=== PATIENT | male | born 1960 | race Caucasian/White ===

== ENCOUNTER 2018-08-23 18:24 | Inpatient (IN) | payer MEDICARE, MEDICAID ==
[~2018-08-23] VITALS: Ht 175.3 cm; Wt 88.2 kg
--- NOTE | ~2018-08-23 | HEMODYNAMI ---
PATIENT:LUZ ALEJANDRO MEDICAL RECORD: [id number] : 58 [id number] ADMISSION DATE: 08/23/18 Generatedon:08/29/201815:36 Patient name: LUZ ALEJANDRO Patient #: [id number] SSN : : 1960 Date of study: 08/29/2018 Page: Of Hemodynamic Procedure Report Patient Data Patient Demographics Procedure consent was obtained First Name: LUZ Gender: Male Last Name: JAVON : 1960 Patient #: [id number] Age: 58 year(s) Race: Unknown Additional ID: [id number] Contact details [address]: [address] [place] [address] [place] State: [place] City: [place] Zip code: [address] Admission Admission Data Admission Date: 08/23/2018 Admission Time: 21:11 Arrival Date: 08/29/2018 Arrival Time: 0:00 Admit Source: Other Insurance Payor: Private Room #: D.[id number] health insurance Height (in.): 68.9 BSA: 1.83 (m2) Height (cm.): 175 BMI: 22.2 (kg/m2) Weight (lbs.): 149.92 Weight (kg.): 68 Lab Results Lab Result Date: 08/29/2018 Lab Result Time: 0:00 Biochemistry Name Units Result Min Max BUN mg/dl 6 -*(----)-- 7 18 Creatinine mg/dl 0.6 --(*---)-- 0.6 1.3 CBC Name Units Result Min Max Hemoglobin g/dl 9.9 *-(----)-- 13.5 17.5 Procedure Procedure Types Cath Procedure Diagnostic Procedure C [facility] w/Coronaries Procedure Description Procedure Date Procedure Date: 08/29/2018 Procedure Start Time: 15:27 Procedure End Time: 15:33 Procedure Staff Name Function Radha Camacho RT Monitor Rob Cuellar MD Performing Physician Mary Ann Crump RT Scrub Lea Burton RN Nurse Procedure Data Cath Procedure Fluoroscopy Diagnostic fluoroscopy Total fluoroscopy Time: 1.3 time: 1.3 min min Diagnostic fluoroscopy Total fluoroscopy dose: 252 dose: 252 mGy mGy Contrast Material Contrast Material Type Amount (ml) Isovue 300 28 Entry Location Entry Primary Successful Side Size Upsize Upsize Entry Closure Vidal ccessful Closure Location (Fr) 1 (Fr) 2 (Fr) Remarks Device Remarks Radial Right 6 Fr Mechanical artery Short Compression Estimated blood loss: 5 ml Diagnostic catheters Device Type Used For End Catheter Placement DIAGNOSTIC [place] 110cm 5 Multi-vessel Fr catheter ([id number]) Angiography Procedure Complications No complications Procedure Medications Medication Administration Route Dosage 0.9% NaCl I.V. 100 ml/hr Oxygen etCO2 Nasal cannula 2 l/min Lidocaine 2% added to field 20 Heparin Flush Bag added to field 2 bags (1000units/500ml NS) Radial Cocktail added to field 1 syringe (Verapamil 2mg/Nitro 400mcg/Heparin 1500units) Versed I.V. 2 mg Fentanyl I.V. 50 mcg Hemodynamics Rest BSA: 1.83 (m2) HGB: 9.9 (g/dl) O2 Consumption: Estimated: 210.49 (ml/min) O2 Con sumption indexed: Estimated:115.02 (ml/min/m) Heart Rate: 63 (bpm) Pressure Samples Time Site Value (mmHg) Purpose Heart Use Rate(bpm) 15:29 LV 88/-4,4 Snapshot 80 15:30 AO 73/55(63) Pullback 83 Gradients Valve Time Site Site 2 Mean SEP/DFP Peak To Heart Use 1 (mmHg) (sec/min) Peak Rate (mmHg) (bpm) Aortic 15:30 LV AO 3 10 83 73/55(63) Calculations Valve P-P Mean Valve Index Valve Source Name Gradient Area Flow (cm2) Aortic 3 3 Snapshots Pre Cath Intra NCS Post Cath Vital Signs Time Heart Resp SPO2 etCO2 NIBP (mmHg) Rhythm Pain Sedation Rate (ipm) (%) (mmHg) Status Level (bpm) 15:17:50 66 17 98 38 153/76(130) NSR 0 (11) 10(A) , No pain 15:22:14 64 12 100 21 141/81(124) NSR 0 (11) 10(A) , No pain 15:26:30 77 12 98 22 138/78(111) NSR 0 (11) 9(A) , No pain 15:30:42 79 13 99 17.9 101/58(83) NSR 0 (11) 10(A) , No pain Medications Time Medication Route Dose Verified Delivered Reason Notes E ffectiveness by by 15:16:43 0.9% NaCl I.V. 100 Rob Lea used for ml/hr [place] Micheal procedure MD KLEIN 15:16:54 Oxygen etCO2 2 l/min Rob Lea used for Nasal [facility] procedure cannula MD KLEIN 15:17:02 Lidocaine 2% added 20ml Rob Rob for local to vial [facility] anesthetic field MD DANGELO 15:17:06 Heparin Flush added 2 bags Rob Rob used for Bag to [facility] procedure (1000units/500ml field MD DANGELO NS) 15:17:13 Radial Cocktail added 1 Rob Rob used for (Verapamil to syringe [facility] procedure 2mg/Nitro field MD DANGELO 400mcg/Hepari 15:24:32 Versed I.V. 2 mg Rob Diaza for [facility] Burton sedation MD KLEIN 15:24:40 Fentanyl I.V. 50 mcg Rob Tate for [place] Micheal sedation MD KLEINeconomist research assistant Log Time Note 14:38:59 Signed procedure consent form obtained from patient. 14:39:00 Diagnostic Cath status Elective 14:39:02 Time tracking: Regular hours (M-F 7:00 - 5:00) 14:39:04 Plan of Care:Hemodynamics will remain stable., Cardiac rhythm will remain stable., Comfort level will be maintained., Respiratory function will remain adequate., Patient/ family verbilizes understanding of procedure., Procedure tolerated without complication., Recovers from procedure without complications.. 14:39:09 Lea Burton RN sent for patient. Start room use. 15:10:27 Patient received from Med/Surg to CCL 1 Alert and oriented. Tansferred to table in Supine position. 15:10:29 ECG and BP/O2 sat monitors applied to patient. 15:10:29 Correct patient and procedure confirmed by team. 15:10:29 Warm blankets applied, and rama hugger turned on for patient comfort. 15:16:36 Vital chart was started 15:16:43 0.9% NaCl 100 ml/hr I.V. was administered by Lea Burton RN; used for procedure; 15:16:54 Oxygen 2 l/min etCO2 Nasal cannula was administered by Lea Burton RN; used for procedure; 15:17:02 Lidocaine 2% 20ml vial added to field was administered by Rob Cuellar MD; for local anesthetic; 15:17:06 Heparin Flush Bag (1000units/500ml NS) 2 bags added to field was administered by Rob Cuellar MD; used for procedure; 15:17:13 Radial Cocktail (Verapamil 2mg/Nitro 400mcg/Heparin 1500units) 1 syringe added to field was administered by Rob Cuellar MD; used for procedure; 15:22:29 Baseline sample Acquired. 15:22:33 Rhythm: sinus rhythm 15:22:35 Full Disclosure recording started 15:22:39 H&P Date Dictated: 08/29/2018 New H&P dictated by physician.. 15:22:40 Pre-procedure instructions explained to patient. 15:22:41 Pre-op teaching completed and patient verbalized understanding. 15:22:42 Family in waiting room. 15:22:43 Patient NPO since Midnight. 15:22:45 Is the patient allergic to Iodine/contrast media? No. 15:22:49 Was the patient premedicated? No 15:22:52 Is patient on blood thinner?No 15:22:53 Patient diabetic? No. 15:22:55 Previous problem with sedation/anesthesia? No ? 15:22:57 Snore? Yes 15:22:58 Sleep apnea? No 15:22:59 Deviated septum? No 15:23:06 Opens mouth fully? Yes 15:23:07 Sticks out tongue? Yes 15:23:11 Airway obstruction? Yes copd 15:23:15 Dentures? No ? 15:23:19 Pre procedure: right dorsailis pedis pulse 2+ Normal; easily identifiable; not easily obliterated 15:23:21 Pre procedure: right posterior tibial pulse 2+ Normal; easily identifiable; not easily obliterated 15:23:23 Patient pain scale 0/10 ?. 15:23:35 IV patent on arrival in left forearm with 0.9% NaCl at O. 15:23:38 Lab results completed and on chart. 15:23:42 Alarms reviewed by RMary NMary 15:23:42 Right Radial & Right Groin area was prepped with chlora-prep and draped in sterile fashion 15:23:43 Sharps counted by scrub and verified by R.N. 15::45 --------ALL STOP TIME OUT------ 15:23:45 Physician arrived 15:23:46 Final Timeout: patient, procedure, and site verified with staff and physician. All members of the team are in agreement. 15:23:48 Right Radial & Right Groin site verified by team. 15:23:51 Maximum allowable Isovue 300 dose 300ml. Physician notified. (300ml for normal creatinines. For patients with creatinine of 1.7 or higher multiply weight(kg) x 5 divided by creatinine.) 15:24:01 Fire Safety Assessment: A--An alcohol-based skin anteseptic being used preoperatively., C--Open oxygen or nitrous oxide is being used., D--An ESU, laser, or fiber-optic light is being used., E--There are other possible contributors. 15:24:05 Physical assessment completed. ASA score P 2 - A patient with mild systemic disease as per Rob Cuellar MD. 15:24:09 Sedation plan: IV Moderate Sedation Medication:Versed, Fentanyl 15:24:14 Use device set Radial Dx or PCI 15:24:15 Medline Cath Pack ([id number]) opened to sterile field. 15:24:15 ACIST Syringe (80654) opened to sterile field. 15:24:16 ACIST Hand Control (51127) opened to sterile field. 15:24:16 DIAGNOSTIC WIRE .035 260cm J wire (605750) opened to sterile field. 15:24:16 Bag Decanter (2002S) opened to sterile field. 15:24:17 Tegaderm 4 x 4 (1626W) opened to sterile field. 15:24:17 ACIST Manifold (70772) opened to sterile field. 15:24:18 MBrace Wrist Support ([id number]) opened to sterile field. 15:24:19 SHEATH 6FR Slender (07-1060) opened to sterile field. 15:24:32 Versed 2 mg I.V. was administered by Lea Burton RN; for sedation; 15:24:33 Zero performed for pressure channel P1 15:24:40 Fentanyl 50 mcg I.V. was administered by Lea Burton RN; for sedation; 15:25:03 Zero performed for pressure channel P1 15:: Lab Result : Hemoglobin 9.9 g/dl :: Lab Result : Creatinine 0.6 mg/dl :: Lab Result : BUN 6 mg/dl 15::38 Patient Weight : 149.92 lbs 15::42 Patient Height : 68.9 inches 15::44 Admit Source: Other 15::47 Procedure started. 15:27:50 Local anesthetic to right radial artery with Lidocaine 2% by Rob Cuellar MD.INITIAL ACCESS ONLY 15:27:59 A 6 Fr Short sheath was inserted into the Right Radial artery 15::31 A DIAGNOSTIC [place]a 110cm 5 Fr catheter ([id number]) was advanced over the wire and used for Multi-vessel Angiography. 15::47 LV hemodynamics recorded. 15:29:48 LV gram done using WAY 15:29:51 Injector settings: Ml/sec: 5, Volume: 15, 15:30:10 EF : 55 % 15:30:18 LCA angiography performed. 15:30:21 Injector settings: Ml/sec: 3, Volume: 6, 15:31:15 RCA angiography performed. 15:31:18 Injector settings: Ml/sec: 3, Volume: 6, 15:31:49 Catheter removed. 15:32:05 Sheath removed intact; hemostasis achieved with Mechanical Compression to the Right Radial artery. 15:32:07 Procedure ended.(Physican Out) 15:32:20 Fluoroscopy time 01.30 minutes. 15:32:24 Fluoroscopy dose: 252 mGy 15:32:24 Flurop Dose total: 252 15:32:28 Contrast amount:Isovue 300 28ml. 15:32:30 Sharps counted by scrub and verified by R.N. 15:32:33 TR band inflated with 10cc of air. 15:32:35 Insertion/operative site no bleeding no hematoma. 15:32:38 Post right radial artery:stable 15:32:41 Post Procedure Pulses reassessed and unchanged 15::44 Post procedure rhythm: unchanged. 15:32:47 Estimated blood loss: 5 ml 15:32:49 Patient needs reinforcement of post procedure teaching. 15:32:49 Post procedure instruction explained to patient.Patient verbalizes understanding. 15:32:58 Procedure and supply charges have been captured, reviewed, submitted and are correct. 15:33:03 Procedure Complication : No complications 15:33:05 Vital chart was stopped 15:33:06 See physician's report for complete and final results. 15:33:12 Report given to [facility]. 15:33:15 Patient transfered to [facility] with Stretcher. 15:33:18 Full Disclosure recording stopped 15:33:18 Procedure ended. 15:33:24 End room use (Document Last) 15:33:54 Arrival Date: 08/29/2018 12:00:00 AM 15:34:16 Insurance Payor : Private health insurance 15:35:46 TR BAND Standard ([id number]) opened to sterile field. Device Usage Item Name Manufacture Quantity Catalog Hospital Part Current Minimal Lot# / Number Charge Number Stock Stock Serial# Code ACIST Acist 1 68042 677506 969714 853694 20 Syringe Medical (33363) Systems Inc Medline Medline 1 [id number] 241544 38421 893520 5 Cath Pack ([id number]) Bag Microtek 1 2001S 448956 78729 244942 5 Decanter Medical Inc. (2001S) DIAGNOSTIC [place] 1 077104 817551 440544 534092 30 WIRE .035 260cm J wire (184329) ACIST Hand Acist 1 26011 342025 019002 321677 5 Control Medical (22927) Systems Inc ACIST Acist 1 04719 814709 227583 625963 5 Manifold Medical (42364) Systems Inc Tegaderm 4 3M 1 1626W 324324 493219 152368 5 x 4 (1626W) MBrace Advanced 1 140-0250-00 025458 21560 003750 5 Wrist Vascular Support Dynamics ([id number]) SHEATH 6FR Terumo 1 [id number] 704766 843886 462285 5 Slender (80-1060) DIAGNOSTIC Terumo 1 40-3883 489388 903840 554070 5 K[place]a 110cm 5 Fr catheter (135678) TR BAND Terumo 1 [id number] 565282 299339 397652 40 Standard ([id number]) Signature Audit [place] Stage Time Signature Unsigned Intra-Procedure 08/29/2018 Radha Camacho 3:36:48 PM RT(R) Signatures Monitor : Radha Camacho RT Signature : Date : Time : [facility] [address] [place] [address]
[2018-08-23] MEDS ORDERED: LISINOPRIL5 MG PO (18:41)
[2018-08-23] MEDS ORDERED: NORVASC5 MG PO (18:41)
[2018-08-23 19:01] LABS: BASOPHILS 0.2 % (0-2); EOSINOPHILS 0.2 % (0-7); HEMATOCRIT 44.1 % (42.0-54.0); IMMATURE GRANULOCYTES 0.2 % (0-5); LYMPHOCYTES 16.1 % (15-50); MCH 33.3 pg (26.0-34.0); MCHC 36.3 g/dL (31.0-37.0); MCV 91.7 fL (80.0-100.0); MEAN PLATELET VOLUME 13.1 fL (7.4-10.4); MONOCYTES 6.7 % (2-11); NEUTROPHILS 76.6 % (40-80); RBC 4.81 10x6/uL (4.20-6.10); RDW 14.5 % (11.5-14.5)
[2018-08-23 19:08] VITALS: BP 127/66
[2018-08-23 19:09] LABS: APTT 27.2 SECONDS (22.8-39.4); INR 1.19 (0.85-1.17); PLATELET COUNT 31 10x3/uL (130-400); PROTIME 14.6 SECONDS (11.6-15.0)
--- NOTE | 2018-08-23 19:25 | NUR ---
PT RETURNED FROM CT VIA STRETCHER. PT RESTING ON BED.
[2018-08-23 19:44] LABS: ALBUMIN 3.2 g/dL (3.4-5.0); ALKALINE PHOSPHATASE 100 U/L (46-116); ALT (SGPT) 1297 U/L (10-68); BILIRUBIN - TOTAL 1.23 mg/dL (0.2-1.3); CALC OSMOLALITY 270 mosm/kg (275-300); CALCIUM 8.2 mg/dL (8.5-10.1); CARBON DIOXIDE 20.3 mmol/L (21.0-32.0); CHLORIDE - SERUM 96 mmol/L (98-107); CREATININE - SERUM 1.8 mg/dL (0.6-1.3); GLUCOSE 117 mg/dL (74-106); POTASSIUM - SERUM 3.1 mmol/L (3.5-5.1); PROTEIN - SERUM 7.3 g/dL (6.4-8.2); SODIUM 135 mmol/L (136-145); UREA NITROGEN 13 mg/dL (7-18); eGFR NON AFRICAN AMERICAN 41 mL/min (90-120)
[2018-08-23 20:00] VITALS: BP 118/59
[2018-08-23 20:01] LABS: MAGNESIUM - SERUM 1.1 mg/dL (1.8-2.4); THYROID STIMULATING HORMONE 0.57 uIU/mL (0.36-3.74); TROPONIN-I < 0.017 ng/mL (0.000-0.060)
[2018-08-23 20:04] LABS: CREATINE KINASE 17254 UL (21-232)
--- NOTE | 2018-08-23 20:10 | NUR ---
PT PROVIDED ICE WATER TO DRINK.
[2018-08-23 21:00] VITALS: BP 127/65
[2018-08-23 21:14] LABS: AMYLASE - SERUM 88 U/L (25-115); LIPASE 179 U/L (73-393)
--- NOTE | 2018-08-23 23:10 | NUR ---
PT ARRIVED VIA STRETCHER FROM ER. R ARM ESSENTIALLY FLACCID. ASSISTED TO BED. BUTTOCKS BRIGHT STAGE 1 APPROX 10CM IN DIAMETER. DRIED FECAL MATTER NOTED OT BUTTOCKS. PT CLEANED AND NICCI'S BUTT PASTE APPLIED. IV TO LAC WITH BANANA BAG AT 125CC/HR. IV PATENT. RED AREA NOTED TO INNER L GROIN. SCRATCH NOTED TO R UPPER ARM. PT ALERT AND ORIENTED TO PERSON, PLACE AND TIME. YELLOW GOWN PLACED AND PT REPOSITIONED ONTO R SIDE. VSS. SR PER CM HR 88. SR UP X2, CALL LIGHT WITHIN REACH AND BED ALARM ON.
[2018-08-24] VITALS: BP 127/68
[2018-08-24 00:10] VITALS: BP 135/72; BMI 22.3
--- NOTE | 2018-08-24 01:15 | NUR ---
PT REPOSITIONED IN BED FOR COMFORT. ATIVAN 1MG SIVP GIVEN FOR AGITATION. SCD'S EXPLAINED AND PLACED ON BILAT LOWER EXTREMITIES. SR UP X2, CALL LIGHT WITHIN REACH AND BED ALARM ON.
--- NOTE | 2018-08-24 03:25 | NUR ---
PT REPOSITIONED IN BED FOR COMFORT. DENIES NEED TO URINATE. PT DRY AT THIS TIME. SR UP X2, CALL LIGHT WITHIN REACH.
--- NOTE | 2018-08-24 04:18 | NUR ---
ATIVAN 1MG SIVP GIVEN FOR START OF TREMORS. PT REPOSITIONED ONTO L SIDE. NO CHANGES TO NEURO STATUS NOTED. PT DENIES NEED TO URINATE. NO BLADDER DISTENSION NOTED. SR UP X2, CALL LIGHT WITHIN REACH.
[2018-08-24 05:26] LABS: BASOPHILS 0.2 % (0-2); EOSINOPHILS 0.6 % (0-7); HEMOGLOBIN 14.1 g/dL (13.5-17.5); IMMATURE GRANULOCYTES 0.2 % (0-5); LYMPHOCYTES 43.5 % (15-50); MCH 33.1 pg (26.0-34.0); MCHC 36.2 g/dL (31.0-37.0); MCV 91.5 fL (80.0-100.0); MONOCYTES 6.2 % (2-11); NEUTROPHILS 49.3 % (40-80); RBC 4.26 10x6/uL (4.20-6.10); RDW 14.6 % (11.5-14.5)
[2018-08-24 05:27] LABS: PLATELET COUNT 23 10x3/uL (130-400)
--- NOTE | 2018-08-24 05:38 | NUR ---
PT STATES ATIVAN HELP HIS TREMORS. DENIES NEED TO URINATE AT THIS TIME. SR PER CM. MINIMAL MOVEMENT TO R ARM. NEEDS MET; WILL CONTINUE TO MONITOR.
[2018-08-24 05:54] LABS: PLATELET ESTIMATE DECREASED; PLATELET MORPHOLOGY NORMAL PLT MORPH
[2018-08-24 06:11] LABS: ALBUMIN 2.7 g/dL (3.4-5.0); BILIRUBIN - TOTAL 1.54 mg/dL (0.2-1.3); CALCIUM 7.6 mg/dL (8.5-10.1); CREATININE - SERUM 1.4 mg/dL (0.6-1.3); PHOSPHOROUS 3.8 mg/dL (2.5-4.9); POTASSIUM - SERUM 3.1 mmol/L (3.5-5.1); PROTEIN - SERUM 6.1 g/dL (6.4-8.2)
--- NOTE | 2018-08-24 06:21 | NUR ---
PT VOIDED 575 CC OF TEA COLORED URINE VIA URINAL. PT PLACED ON BEDPAN PER REQUEST. CALL LIGHT WITHIN REACH.
[2018-08-24 06:31] LABS: MAGNESIUM - SERUM 1.5 mg/dL (1.8-2.4)
[2018-08-24 06:32] LABS: ANION GAP 12.5 mmol/L (8-16); CARBON DIOXIDE 26.6 mmol/L (21.0-32.0)
--- NOTE | 2018-08-24 07:25 | NUR ---
PT RESTING IN BED, EYES OPEN. NO C/O PAIN. NO S/S OF ACUTE DISTRESS NOTED. ALERT AND ORIENTED. PT SLOW TO RESPOND TO QUESTIONS, BUT ANSWERS APPROPRIATELY. RIGHT ARM FLACCID. NEEDS ASSISTANCE WITH MEALS. BUTTOCKS, LEFT GROIN REDNESS. PT ON TELEMETRY SR 79. IV TO LEFT AC, BANANA BAG INFUSING @ 125ML/HR. PLATELETS 23 THIS AM, POTASSIUM 3.1 AND MAG 1.5 THIS AM ALSO. PT DENIES ANYTHING FURTHER AT THIS TIME. CALL LIGHT IN REACH. FALL PRECAUTIONS IN PLACE. WILL CONTINUE TO MONITOR.
[2018-08-24 09:22] VITALS: BP 136/66
--- NOTE | 2018-08-24 12:10 | NUR ---
I have reviewed this patient and I concur with the Shift Assessment completed by the Licensed Practical Nurse today this shift.
--- NOTE | 2018-08-24 15:48 | NUR ---
PT'S DAUGHTER CALLED TO CHECK ON PT. GAVE US HER CONTACT INFO: [phone].
--- NOTE | 2018-08-24 16:02 | MORECARE ---
CASE MANAGEMENT DISCHARGE SUMMARY PATIENT: LUZ ALEJANDRO UNIT: [id number] ADM DATE: 08/23/18 AGE: 58 : 58 SEX: M ROOM/BED: D.2204 AUTHOR: DOROTHEA ANSARI PHYSICIAN: REFERRING PHYSICIAN: JAGRUTI CHAIREZ MD DATE OF SERVICE: 08/24/18 Discharge Plan Patient Name: LUZ ALEJANDRO Facility: [facility]:[place] : 1960 Planned Disposition: Inpatient Rehab Facility Anticipated Discharge Date: Discharge Date: Expected LOS: Initial Reviewer: [email or web address] Initial Review Date: 08/23/2018 Generated: 08/24/18 5:02 pm Patient Name: LUZ ALEJANDRO Page 33374 at 1602 All edits/amendments must be made on the electronic document DICTATION DATE: 08/24/181600 SOCIAL WORK MANAGER: LORENE 08/24/181600 RPT#: [id number] DC DATE: STATUS: ADM IN [facility] [address] [place] [address] END OF REPORT
--- NOTE | 2018-08-24 16:09 | MORECARE ---
CASE MANAGEMENT DISCHARGE SUMMARY PATIENT: LUZ ALEJANDRO UNIT: [id number] ADM DATE: 08/23/18 AGE: 58 : 58 SEX: M ROOM/BED: D.2204 AUTHOR: DOROTHEA ANSARI PHYSICIAN: REFERRING PHYSICIAN: JAGRUTI CHAIREZ MD DATE OF SERVICE: 08/24/18 Discharge Plan Patient Name: LUZ ALEJANDRO [facility] : 1960 Planned Disposition: Inpatient Rehab Facility Anticipated Discharge Date: Discharge Date: Expected LOS: Initial Reviewer: [email or web address] Initial Review Date: 08/23/2018 Generated: 08/24/18 5:09 pm DCPIA - Discharge Planning Initial Assessment Updated by [email or web address]: Sepideh Floyd on 08/24/18 4:07 pm * Is the patient Alert and Oriented? Yes * How many steps to enter\exit or inside your home? 4 steps fr * [facility] Pharmacy [facility] in [place], [place] * Preadmission Environment Home Alone * ADLs Independent * Community resources currently utilized None * Please name any agencies selected above. N/A * Additional services required to return to the preadmission environment? Yes * Can the patient safely return to the preadmission environment? Yes * Has this patient been hospitalized within the prior 30 days at any hospital? No Last DP export: 08/24/18 3:02 pm Patient Name: LUZ ALEJANDRO Page 73826 at 1609 All edits/amendments must be made on the electronic document DICTATION DATE: 08/24/18 160 BALING MACHINE TENDER: DM 08/24/18 160 RPT#: [id number] DC DATE: STATUS: ADM IN [facility] [address] [place] [address] END OF REPORT
--- NOTE | 2018-08-24 16:34 | MORECARE ---
CASE MANAGEMENT DISCHARGE SUMMARY PATIENT: LUZ DICKSON UNIT: [id number] ADM DATE: 08/23/18 AGE: 58 : 58 SEX: M ROOM/BED: D.2204 AUTHOR: COTY,DOC PHYSICIAN: REFERRING PHYSICIAN: JAGRUTI CHAIREZ MD DATE OF SERVICE: 08/24/18 Discharge Plan Patient Name: LUZ DICKSON Facility: [facility]:[place] : 1960 Planned Disposition: Inpatient Rehab Facility Anticipated Discharge Date: Discharge Date: Expected LOS: Initial Reviewer: [email or web address] Initial Review Date: 08/23/2018 Generated: 08/24/18 5:34 pm Comments DCP- Discharge Planning Updated by [email or web address]: Sepideh Floyd on 08/24/18 3:[address] CM met with patient at the bedside and explained my role. Received permission to proceed with the assessment. His speech is slightly slurred and he is slow in answering. Patient lives alone in [place], [place]. Was independent in his care. He has a brother, Randal Dickson, in [place]. States "he owns [employer]". A person named Radha called and identified herself as his daughter. He states Radha is his sister in [place]. He stated information could be shared with Radha. Her contact phone number is [phone]. The nurse had received a telephone call from Radha. The primary nurse provided the contact number for Radha. He has 4 steps in the front to enter his home and 6 steps at a higher level in the back. DME- has a cane- denies any additional equipment. Has tub and shower. PCP- DR Talbot in [place], [place] Pharmacy- [facility] in [place] Discussed dcp options. He would like acute rehab. Advised him of the providers [facility] and [facility]. Advised him he would be evaluated by PT/ OT/ Speech Therapy. Explained case management will follow to assist w/ next level of care needs. He will think about which rehab he wants. Speech therapy on the unit at this time. CM to follow. DCPIA - Discharge Planning Initial Assessment Updated by [email or web address]: Sepideh Floyd on 08/24/18 4:07 pm * Is the patient Alert and Oriented? Yes * How many steps to enter\\exit or inside your home? 4 steps fr * PCP DR Loyd Talbot Nurse Practitioner- [place] * Pharmacy [facility] in [place], [place] * Preadmission Environment Home Alone * ADLs Independent * Community resources currently utilized None * Please name any agencies selected above. N/A * Additional services required to return to the preadmission environment? Yes * Can the patient safely return to the preadmission environment? Yes * Has this patient been hospitalized within the prior 30 days at any hospital? No Last DP export: 08/24/18 3:09 pm Patient Name: LUZ DICKSON Page 94789 at 1634 All edits/amendments must be made on the electronic document DICTATION DATE: 08/24/181633 FEEDER CATCHER: LORENE 08/24/184 RPT#: [id number] DC DATE: STATUS: ADM IN [facility] [address] [place] [address] END OF REPORT
[2018-08-24 17:18] VITALS: BP 139/69
--- NOTE | 2018-08-24 18:19 | NUR ---
PT RESTING IN BED, EYES OPEN. NO C/O PAIN. NO S/S OF ACUTE DISTRESS NOTED. PT DENIES ANYTHING FURTHER. CALL LIGHT IN REACH. FALL PRECAUTIONS IN PLACE. WILL CONTINUE TO MONITOR.
[2018-08-24 20:00] VITALS: BP 135/64
--- NOTE | 2018-08-24 23:47 | NUR ---
RESTARTED ADY TO LEFT INNER FOREARM WITH 20 GA AND DCED IV FROM LEFT AC CATH INTACT
[2018-08-25] VITALS: BP 131/59
[2018-08-25 03:00] VITALS: BP 106/70
[2018-08-25 03:58] LABS: BASOPHILS 0.2 % (0-2); EOSINOPHILS 0.9 % (0-7); HEMOGLOBIN 13.1 g/dL (13.5-17.5); IMMATURE GRANULOCYTES 0.2 % (0-5); LYMPHOCYTES 39.4 % (15-50); MCH 32.4 pg (26.0-34.0); MCHC 35.4 g/dL (31.0-37.0); MCV 91.6 fL (80.0-100.0); MONOCYTES 4.5 % (2-11); NEUTROPHILS 54.8 % (40-80); RBC 4.04 10x6/uL (4.20-6.10); RDW 14.1 % (11.5-14.5); WBC 4.7 10x3/uL (4.8-10.8)
[2018-08-25 04:03] LABS: PLATELET COUNT 20 10x3/uL (130-400)
[2018-08-25 04:08] LABS: INR 1.18 (0.85-1.17); PROTIME 14.5 SECONDS (11.6-15.0)
[2018-08-25 04:20] LABS: ALBUMIN 2.7 g/dL (3.4-5.0); ANION GAP 12.8 mmol/L (8-16); BILIRUBIN - TOTAL 2.55 mg/dL (0.2-1.3); CALCIUM 8.1 mg/dL (8.5-10.1); CARBON DIOXIDE 27.6 mmol/L (21.0-32.0); CREATININE - SERUM 1.1 mg/dL (0.6-1.3); MAGNESIUM - SERUM 1.7 mg/dL (1.8-2.4); POTASSIUM - SERUM 3.4 mmol/L (3.5-5.1); PROTEIN - SERUM 6.1 g/dL (6.4-8.2)
[2018-08-25 04:29] LABS: PHOSPHOROUS 1.4 mg/dL (2.5-4.9)
--- NOTE | 2018-08-25 07:53 | NUR ---
AWAKE AND ALERT. OREINTED X3. REPORTED SCRAPED ARM ON SIDE OF BED. SMALL 1CM ABRASION NOTED. COVERED WITH BANDAID. LUNGS ARE CLEAR BILATERALLY, NO COUGH NOTED. SKIN IS INTACT WITH SOME REDNESS NOTED TO NUNU AREA. IV TO LEFT WRIST AREA IS PATENT WITHOUT REDNESS AT INSERTION SITE. DENIES NEEDS. USES URINAL.
[2018-08-25 08:46] VITALS: BP 133/84
--- NOTE | 2018-08-25 09:30 | NUR ---
ATE MOST OF BREAKFAST. TOOK AM MEDS WITHOUT DIFFICUTLY. DENIES NEEDS.
--- NOTE | 2018-08-25 11:59 | NUR ---
Rehab Note- Acute Inpatient Rehab prescreen order received. The patient has [facility] insurance and will require a PreAuth prior to an inpatient acute rehab stay. PreAuth has been started. Will follow at this time. Thank you for this referral! Lila Lomeli RN Clinical Liaison, [facility] Rehab
[2018-08-25 13:03] VITALS: BMI 22.3
[2018-08-25 13:31] VITALS: Ht 175.3 cm; Wt 88.2 kg
[2018-08-25 13:46] VITALS: BP 157/99
[2018-08-25 18:12] VITALS: BP 134/86
--- NOTE | 2018-08-25 18:51 | NUR ---
UP TO BR WITH ONE PERSON ASSIST. HAD GOOD FORMED STOOL. STATED HE FELT BETTER AFTER. ATE MOST OF SUPPER. NO CHANGES NOTED. DENIES NEEDS.
[2018-08-25 20:00] VITALS: BP 146/82
--- NOTE | 2018-08-25 20:30 | NUR ---
SUPINE IN BED, A&O X 4. HAND KICKING MACHINE OPERATOR ON RIGHT SIDE IS WEAK. WEAKNESS ALSO NOTED IN RIGHT LEG. PT AMBULATED TO BATHROOM WITH WALKER, MIN ASSIST. WEAKNESS NOTED, BSC PUT IN ROOM. WILL CONTINUE TO MONITOR.
[2018-08-26] VITALS: BP 145/79
--- NOTE | 2018-08-26 04:39 | NUR ---
I have reviewed this patient and I concur with the Shift Assessment completed by the Licensed Practical Nurse today this shift.
[2018-08-26 05:32] LABS: ALBUMIN 2.3 g/dL (3.4-5.0); ALKALINE PHOSPHATASE 84 U/L (46-116); BILIRUBIN - TOTAL 2.89 mg/dL (0.2-1.3); CALCIUM 7.6 mg/dL (8.5-10.1); CARBON DIOXIDE 28.2 mmol/L (21.0-32.0); CHLORIDE - SERUM 103 mmol/L (98-107); CREATININE - SERUM 0.9 mg/dL (0.6-1.3); GLUCOSE 93 mg/dL (74-106); MAGNESIUM - SERUM 1.5 mg/dL (1.8-2.4); POTASSIUM - SERUM 3.6 mmol/L (3.5-5.1); PROTEIN - SERUM 5.3 g/dL (6.4-8.2); SODIUM 138 mmol/L (136-145); eGFR NON AFRICAN AMERICAN > 90 mL/min (90-120)
[2018-08-26 05:39] LABS: BASOPHILS 0.3 % (0-2); EOSINOPHILS 2.3 % (0-7); LYMPHOCYTES 31.2 % (15-50); MCH 32.3 pg (26.0-34.0); MCHC 34.7 g/dL (31.0-37.0); MCV 93.2 fL (80.0-100.0); MEAN PLATELET VOLUME 12.1 fL (7.4-10.4); MONOCYTES 10.2 % (2-11); RDW 14.1 % (11.5-14.5)
[2018-08-26 05:41] LABS: HEMOGLOBIN 10.4 g/dL (13.5-17.5); RBC 3.22 10x6/uL (4.20-6.10); WBC 3.5 10x3/uL (4.8-10.8)
[2018-08-26 05:42] LABS: PLATELET COUNT 19 10x3/uL (130-400)
[2018-08-26 05:49] LABS: ALT (SGPT) 279 U/L (10-68); CALC OSMOLALITY 274 mosm/kg (275-300); PHOSPHOROUS 2.1 mg/dL (2.5-4.9); UREA NITROGEN 10 mg/dL (7-18)
[2018-08-26 06:07] LABS: PLATELET ESTIMATE DECREASED
[2018-08-26 09:15] VITALS: BP 155/95
[2018-08-26 09:15] LABS: HEPATITIS C ANTIBODY <0.1 S/CO RAT (0.0-0.9)
--- NOTE | 2018-08-26 13:42 | NUR ---
PT RESTING IN BED. NO SIGNS OF DISTRESS. IV TO LEFT FORARM PATENT NO REDNESS OR TENDERNESS. ON TELEMETRY 82 SR. DENIES ANY FUTHER NEED AT THIS TIME. CALL LIGHT IN REACH. BED LOW POSITION. NO FAMILY AT BEDSIDE AT THIS TIME.
[2018-08-26 13:50] VITALS: BP 138/71
--- NOTE | 2018-08-26 14:42 | NUR ---
PT COMPLETED SHOWER. FULL LINEN AND GOWN CHANGE. PT DENIES FURTHER NEEDS. WILL CONT TO MONITOR.
--- NOTE | 2018-08-26 15:58 | NUR ---
I have reviewed this patient and I concur with the Shift Assessment completed by the Licensed Practical Nurse today this shift.
[2018-08-26 19:01] VITALS: BP 135/74
--- NOTE | 2018-08-26 19:30 | NUR ---
A&O X 4. HAND ROAD ENGINEER FREIGHT AND LEG STRENTH ON RIGHT SIDE ARE STILL SLIGHTLY WEAK, BUT PT STATES HE IS GETTING BETTER AND CAN AMBULATE WITH WALKER BETTER THAN YESTERDAY. REINFORCED TO PT TO PRESS CALL LIGHT AND WAIT FOR NURSE OR AID IF ATTEMPTING TO AMBULATE. PT VERBALIZED UNDERSTANDING. WILL CONTINUE TO MONITOR.
--- NOTE | 2018-08-26 19:54 | NUR ---
OT NOTE: IMPROVEMENT NOTED TODAY FROM YESTERDAY. BED MOB WITH MIN ASSIST; ABLE TO AMB WITH MIN ASSIST AT SLOW PACE X APPROX 50 FT. ABLE TO KEEP R HAND ON WALKER TODAY WITHOUT ASSIST. TOILETING WITH ASSIST; BED MOB WITH MIN ASSIST BACK TO BED. ROVERTO GALVAN, OTR/L
[2018-08-26 20:41] VITALS: BP 144/83
[2018-08-27 00:57] VITALS: BP 160/88
--- NOTE | 2018-08-27 05:47 | NUR ---
I have reviewed this patient and I concur with the Shift Assessment completed by the Licensed Practical Nurse today this shift.
[2018-08-27 05:54] VITALS: BP 154/85
[2018-08-27 06:04] LABS: HEMATOCRIT 27.7 % (42.0-54.0); HEMOGLOBIN 9.6 g/dL (13.5-17.5); MCH 32.9 pg (26.0-34.0); MCHC 34.7 g/dL (31.0-37.0); MCV 94.9 fL (80.0-100.0); MEAN PLATELET VOLUME 12.6 fL (7.4-10.4); RBC 2.92 10x6/uL (4.20-6.10); RDW 14.7 % (11.5-14.5); WBC 2.8 10x3/uL (4.8-10.8)
[2018-08-27 06:32] LABS: PLATELET COUNT 30 10x3/uL (130-400)
[2018-08-27 06:41] LABS: ALBUMIN 2.5 g/dL (3.4-5.0); ALKALINE PHOSPHATASE 78 U/L (46-116); BILIRUBIN - TOTAL 4.34 mg/dL (0.2-1.3); CALCIUM 7.9 mg/dL (8.5-10.1); CARBON DIOXIDE 27.5 mmol/L (21.0-32.0); CHLORIDE - SERUM 106 mmol/L (98-107); GLUCOSE 84 mg/dL (74-106); MAGNESIUM - SERUM 1.5 mg/dL (1.8-2.4); PHOSPHOROUS 2.3 mg/dL (2.5-4.9); POTASSIUM - SERUM 3.5 mmol/L (3.5-5.1); PROTEIN - SERUM 5.5 g/dL (6.4-8.2); SODIUM 140 mmol/L (136-145)
[2018-08-27 06:46] LABS: ALT (SGPT) 209 U/L (10-68); CALC OSMOLALITY 275 mosm/kg (275-300); CREATININE - SERUM 0.6 mg/dL (0.6-1.3); UREA NITROGEN 7 mg/dL (7-18); eGFR NON AFRICAN AMERICAN > 90 mL/min (90-120)
--- NOTE | 2018-08-27 08:17 | NUR ---
PT RESTING IN BED. CO OF "BEING BOTHERED AND NOT BEING ABLE TO SLEEP." TOLD PT I WOULD DO MY BEST TO NOT BOTHER HIM. NO S/S OF ACUTE DISTRESS. CL IN PLACE.
[2018-08-27 08:50] LABS: EOSINOPHILS 1 % (0-7); LYMPHOCYTES 35 % (15-50); MONOCYTES 10 % (2-11); NEUTROPHILS 51 % (40-80); PLATELET ESTIMATE DECREASED
[2018-08-27 08:51] LABS: ANISOCYTOSIS OCC
[2018-08-27 08:55] VITALS: BP 150/77
--- NOTE | 2018-08-27 10:56 | NUR ---
CM met with patient at the bedside and explained my role. Received permission to proceed with the assessment. His speech is slightly slurred and he is slow in answering. Patient lives alone in [place], [place]. Was independent in his care. He has a brother, Randal Dickson, in [place]. 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 A person named Radha called and identified herself as his daughter. He states Radha is his sister in [place]. He stated information could be shared with Radha. Her contact phone number is [phone]. The nurse had received a telephone call from Radha. The primary nurse provided the contact number for Radha. He has 4 steps in the front to enter his home and 6 steps at a higher level in the back. DME- has a cane- denies any additional equipment. Has tub and shower. PCP- DR Talbot in [place], [place] Pharmacy[facility] in [place] Discussed dcp options. He would like acute rehab. Advised him of the providers [facility] and [facility]. Advised him he would be evaluated by PT/ OT/ Speech Therapy. Explained case management will follow to assist w/ next level of care needs. He will think about which rehab he wants. Speech therapy on the unit at this time. CM to follow. this was done by nimo narayan on 08/24/18 @ 8937 (per zoe)
--- NOTE | 2018-08-27 13:15 | NUR ---
OT NOTE: PT DOING BETTER TODAY. INDEP WITH BED MOB; SIT TO STAND WITH MIN ASSIST; ABLE TO AMB APPROX 100 FT WITH MIN ASSIST AND WALKER AND ABLE TO GRASP WALKER BETTER TODAY. ABLE TO KWAN SOCKS WITH SET UP AND EXT TIME. ABLE TO USE URINAL WITH SBA. PROVIDED PT WITH GROSS AND FINE MOTOR COORDINATION EXS TO PERFORM. ROVERTO GALVAN, OTR/L
[2018-08-27 13:36] VITALS: BP 133/66
--- NOTE | 2018-08-27 15:28 | NUR ---
OT NOTE: PT COMPLETED BED MOB WITH SBA. PT COMPLETED SIT TO STAND WITH CGA. PT COMPLETED TOILETING TASK WITH HYGIENE WITH CGA/MIN A. THANK YOU, JESUS RENTERIA
[2018-08-27 16:35] VITALS: BP 149/92
--- NOTE | 2018-08-27 18:33 | NUR ---
PT RESTING IN BED. DR CHAIREZ IN VISTING PT. NO S/S OF ACUTE DISTRESS. CL IN PLACE.
[2018-08-27 20:30] VITALS: BP 148/80
[2018-08-28 00:20] VITALS: BP 148/82
--- NOTE | 2018-08-28 01:22 | NUR ---
I have reviewed this patient and I concur with the Shift Assessment completed by the Licensed Practical Nurse today this shift.
[2018-08-28 05:05] VITALS: BP 147/86
[2018-08-28 05:19] LABS: BASOPHILS 0.3 % (0-2); EOSINOPHILS 3.1 % (0-7); HEMATOCRIT 27.6 % (42.0-54.0); HEMOGLOBIN 9.5 g/dL (13.5-17.5); IMMATURE GRANULOCYTES 0.3 % (0-5); LYMPHOCYTES 30.5 % (15-50); MCH 32.9 pg (26.0-34.0); MCHC 34.4 g/dL (31.0-37.0); MCV 95.5 fL (80.0-100.0); MEAN PLATELET VOLUME 11.5 fL (7.4-10.4); MONOCYTES 17.3 % (2-11); NEUTROPHILS 48.5 % (40-80); RBC 2.89 10x6/uL (4.20-6.10); RDW 15.3 % (11.5-14.5); WBC 3.2 10x3/uL (4.8-10.8)
[2018-08-28 05:21] LABS: PLATELET COUNT 42 10x3/uL (130-400)
[2018-08-28 05:35] LABS: CALC OSMOLALITY 271 mosm/kg (275-300); CALCIUM 7.9 mg/dL (8.5-10.1); CARBON DIOXIDE 25.1 mmol/L (21.0-32.0); CHLORIDE - SERUM 104 mmol/L (98-107); CREATININE - SERUM 0.7 mg/dL (0.6-1.3); GLUCOSE 103 mg/dL (74-106); MAGNESIUM - SERUM 1.7 mg/dL (1.8-2.4); PHOSPHOROUS 2.4 mg/dL (2.5-4.9); POTASSIUM - SERUM 3.4 mmol/L (3.5-5.1); SODIUM 137 mmol/L (136-145); UREA NITROGEN 8 mg/dL (7-18); eGFR NON AFRICAN AMERICAN > 90 mL/min (90-120)
[2018-08-28 05:54] LABS: APTT 28.4 SECONDS (22.8-39.4); INR 1.1 (0.85-1.17); PROTIME 13.7 SECONDS (11.6-15.0)
--- NOTE | 2018-08-28 08:42 | NUR ---
PT RESTING IN BED. NPO. NO S/S OF ACUTE DISTRESS. CL IN PLACE.
[2018-08-28 09:12] VITALS: BP 149/68
--- NOTE | 2018-08-28 10:09 | NUR ---
NUTRITION F/U CHART REVIEWED. PT CURRENTLY NPO FOR PROCEDURE. WILL PROVIDE DIET WHEN RESUMED, MONITOR PO INTAKE. RD FOLLOWING
--- NOTE | 2018-08-28 11:42 | NUR ---
Rehab Note- Received call from Flip with [facility] that the patient has been approved for an inpatient acute rehab stay. 7 days approved, Auth #[id number], clinical reviewer will be Juvencio, phone #[phone], fax#[phone]. Spoke with SURY Varghese. Will accept to [facility] Acute Inpatient Rehab when medically stable and ready for discharge from the acute hospital. Thank you for this referral! Lila Lomeli RN CLincial Liaison, [facility] Rehab
--- NOTE | 2018-08-28 12:29 | NUR ---
OT NOTE: BED MOB WITH CGA. SIT TO STAND WITH CGA. FINE MOTOR COORDINATION TSKS WITH R HAND. INFORMED PT THAT I WOULD RETURN TO WORK ON FEEDING TASKS WITH PT, BUT HE REMINDED ME THAT HE COULD NOT EAT DUE TO UPCOMING PROCEDURE. ROVERTO GALAVN, OTR/L
--- NOTE | 2018-08-28 16:29 | NUR ---
OT NOTE: PT COMPLETED BED MOB WITH SBA. PT COMPLETED SIT TO STAND WITH SBA. PT COMPLETED RUE GROSS/FM MOTOR TASKS . PT COMPLETED HYGIENE WITH SBA. THANK YOU, JESUS RENTERIA
[2018-08-28 16:45] VITALS: BP 153/76
--- NOTE | 2018-08-28 18:30 | NUR ---
PT RESTING IN BED. ATE 100% OF DINNER. NO S/S OF ACUTE DISTRESS. CL IN PLACE.
--- NOTE | 2018-08-28 19:15 | NUR ---
REC'D IN BED AWAKE AND ALERT. RESP EVEN AND UNLABORED WITH NO DISTRESS NOTED. CAN EXPRESS NEEDS AND WANTS. ASSESSMENT COMPLETED. C/L IN REACH AT BEDSIDE.
[2018-08-28 20:03] VITALS: BP 157/82
[2018-08-29 00:23] VITALS: BP 138/70
--- NOTE | 2018-08-29 00:27 | NUR ---
I have reviewed this patient and I concur with the Shift Assessment completed by the Licensed Practical Nurse today this shift.
[2018-08-29 04:29] LABS: BASOPHILS 0.3 % (0-2); EOSINOPHILS 4.2 % (0-7); HEMOGLOBIN 9.9 g/dL (13.5-17.5); IMMATURE GRANULOCYTES 0.3 % (0-5); LYMPHOCYTES 30.6 % (15-50); MCH 32.9 pg (26.0-34.0); MCHC 34.1 g/dL (31.0-37.0); MCV 96.3 fL (80.0-100.0); MONOCYTES 16.4 % (2-11); NEUTROPHILS 48.2 % (40-80); RBC 3.01 10x6/uL (4.20-6.10); RDW 15.7 % (11.5-14.5); WBC 3.5 10x3/uL (4.8-10.8)
[2018-08-29 04:34] LABS: PLATELET COUNT 67 10x3/uL (130-400)
[2018-08-29 04:35] LABS: PLATELET ESTIMATE DECREASED
[2018-08-29 04:50] LABS: ALBUMIN 2.5 g/dL (3.4-5.0); ALKALINE PHOSPHATASE 86 U/L (46-116); ALT (SGPT) 160 U/L (10-68); BILIRUBIN - TOTAL 5.62 mg/dL (0.2-1.3); CALC OSMOLALITY 271 mosm/kg (275-300); CALCIUM 8.3 mg/dL (8.5-10.1); CARBON DIOXIDE 26.5 mmol/L (21.0-32.0); CHLORIDE - SERUM 104 mmol/L (98-107); CREATININE - SERUM 0.6 mg/dL (0.6-1.3); GLUCOSE 106 mg/dL (74-106); MAGNESIUM - SERUM 1.6 mg/dL (1.8-2.4); PHOSPHOROUS 2.4 mg/dL (2.5-4.9); POTASSIUM - SERUM 3.3 mmol/L (3.5-5.1); PROTEIN - SERUM 5.7 g/dL (6.4-8.2); SODIUM 137 mmol/L (136-145); UREA NITROGEN 6 mg/dL (7-18); eGFR NON AFRICAN AMERICAN > 90 mL/min (90-120)
[2018-08-29 05:19] VITALS: BP 145/81
[2018-08-29 08:00] VITALS: BP 151/78
[2018-08-29 08:25] VITALS: BP 151/78
--- NOTE | 2018-08-29 11:33 | NUR ---
OT NOTE: PT DID VERY WELL TODAY. BED MOB WITH SBA. SET UP TO KWAN SOCKS; SIMPLE GROOMING WITH SET UP; ABLE TO AMB TO BATHROOM WITH CGA AND NO AD. AMB INTO HALLWAY WITHOUT AD AND CGA X 150+ FT. EDUCATION ON CONTINUEING EXS WITH R HAND TO IMPROVE COORDINATION. HAS IMPROVED GREATLY SINCE ADMISSION. ROVERTO GALVAN, OTR/L
[2018-08-29 12:45] VITALS: BP 145/78
--- NOTE | 2018-08-29 13:45 | NUR ---
I have reviewed this patient and I concur with the Shift Assessment completed by the Licensed Practical Nurse today this shift.
--- NOTE | 2018-08-29 15:10 | NUR ---
OT NOTE: PT COMPLETED BED MOB AND EOB SITTING WITH SBA. PT COMPLETED HYGIENE TASK WITH SET UP. THANK YOU, JESUS GUERRA
--- NOTE | 2018-08-29 16:41 | EC ---
PATIENT:LUZ ALEJANDRO DATE OF SERVICE: 08/23/18 SEX: M MEDICAL RECORD: [id number] DATE OF : 58 LOCATION:D.M2 D.211 AGE OF PATIENT: 58 ADMISSION DATE: 08/23/18 REFERRING PHYSICIAN: INTERPRETING PHYSICIAN: PAVITHRA FLORENTINO MD ECHOCARDIOGRAM REPORT ECHO CHARGES 4 ECHO COMPLETE Date: 08/25/18 CLINICAL DIAGNOSIS: TIA ECHOCARDIOGRAPHIC MEASUREMENTS (adult normal given) AC root (d.<3.7cm) 2.8 cm LV Septum d (<1.2 cm> 0.7 cm Valve Excursion 1.4 cm LV Septum (systole) 1.3 cm Left Atria (s.<4.0cm> 3.5 cm LVPW d(<1.2cm) 0.9 cm RV (d.<2.3cm) 3.3 cm LVPW (sytole) 1.4 cm LV diastole(<5.6CM) 5.4 cm MV E-F(>70mm/sec) cm LV systole 4.0 cm LVOT Diameter 1.9 cm MV exc.(>10mm) cm Est.ejection fraction (50-75%) % DOPPLER: LVIT cm/sec A 68 cm/sec E 53 cm/sec LA cm/sec RVSP 22.1 mmHg LVOT 115 cm/sec AOP1/2T m/s Asc. Ao 164 cm/sec RVOT 65 cm/sec RA cm/sec PA 88 cm/sec AV Gradient Peak 10.7 mmHg AV Mean 6.0 mmHg AV Area 2.1 cm MV Gradient Peak 2.5 mmHg MV Mean 1.3 mmHg MV Area cm COMMENTS: Mortgage Coordinator: Abril ESCOBARTANO SANDEEP Microbiological Laboratory Technician: 1 Dr. Florentino TAPE# PACS Pericardial Effusion N DATE OF SERVICE: 08/25/2018 PROCEDURE: Echocardiogram. FINDINGS: 1. Left ventricular chamber size is within normal limits. Left ventricular systolic function is normal. Overall ejection fraction estimated at 60%. 2. Left atrium, right atrium, and right ventricle chamber sizes are within normal limits. 3. Valvular structures have normal structure and motion. ECHOCARDIOGRAM REPORT [id number] LUZ ALEJANDRO 4. Doppler interrogation reveals only trace tricuspid regurgitation, no other valvular insufficiency or stenosis. 5. No evidence of pericardial effusion or left ventricular thrombus. TRANSINT:[id number] Voice Confirmation ID: [id number] DOCUMENT ID: [id number] PAVITHRA FLORENTINO MD at 1641 CC: [id number] DICTATION DATE: 08/25/18 1212 QUALITY LEAD: 08/25/18 1309 ADM IN [facility] [address] [id number]
[2018-08-29 20:00] VITALS: BP 145/78
--- NOTE | 2018-08-29 20:00 | NUR ---
INITIAL ROUNDS AND ASSESSMENT COMPLETED. PT WITH TR BAND TO RIGHT WRIST. AIR HAS BEEN PARTIALLY RELEASED. NO BLEEDING OR BRUISING NOTED. PT ALERT/ORIENTED. SR PER TELEMETRY. O2 @ 2L/NC. NABICARB INFUSING AT 100ML/HR TO LFA. CONTINUE TO MONITOR AND REMOVE TR BAND.
--- NOTE | 2018-08-29 22:00 | NUR ---
BEDTIME MEDS GIVEN. TR BAND HAS BEEN REMOVED AND DRESSING IN PLACE. C/D/I. PT GIVEN BEDTIME SNACK. HE IS UP AND ABOUT TO BATHROOM WITH NO ASSISTANCE. NO DIFFICULTY NOTED WITH GAIT OR ANY UNSTEADINESS. MONITOR AND CPOC.
--- NOTE | 2018-08-30 02:53 | NUR ---
RESTING IN BED WITH NO DISTRESS. IV NA BICARB @ 100ML/HR AND NOW BANANA BAG @ 125ML/HR BOTH INFUSING. MONITOR AND CPOC.
[2018-08-30 04:00] VITALS: BP 152/92
[2018-08-30 05:09] LABS: BASOPHILS 0.3 % (0-2); EOSINOPHILS 4.6 % (0-7); HEMATOCRIT 28.1 % (42.0-54.0); HEMOGLOBIN 9.4 g/dL (13.5-17.5); IMMATURE GRANULOCYTES 0.3 % (0-5); LYMPHOCYTES 28.8 % (15-50); MCH 32.8 pg (26.0-34.0); MCHC 33.5 g/dL (31.0-37.0); MCV 97.9 fL (80.0-100.0); MEAN PLATELET VOLUME 11.4 fL (7.4-10.4); MONOCYTES 19.9 % (2-11); NEUTROPHILS 46.1 % (40-80); PLATELET COUNT 75 10x3/uL (130-400); RBC 2.87 10x6/uL (4.20-6.10); RDW 16.6 % (11.5-14.5); WBC 3.5 10x3/uL (4.8-10.8)
[2018-08-30 05:32] LABS: ALBUMIN 2.4 g/dL (3.4-5.0); ALKALINE PHOSPHATASE 81 U/L (46-116); ALT (SGPT) 131 U/L (10-68); BILIRUBIN - TOTAL 5.33 mg/dL (0.2-1.3); CALC OSMOLALITY 277 mosm/kg (275-300); CALCIUM 8.1 mg/dL (8.5-10.1); CARBON DIOXIDE 27.7 mmol/L (21.0-32.0); CHLORIDE - SERUM 106 mmol/L (98-107); CREATININE - SERUM 0.6 mg/dL (0.6-1.3); GLUCOSE 112 mg/dL (74-106); MAGNESIUM - SERUM 1.9 mg/dL (1.8-2.4); POTASSIUM - SERUM 3.6 mmol/L (3.5-5.1); PROTEIN - SERUM 5.5 g/dL (6.4-8.2); SODIUM 140 mmol/L (136-145); UREA NITROGEN 7 mg/dL (7-18); eGFR NON AFRICAN AMERICAN > 90 mL/min (90-120)
[2018-08-30 08:18] VITALS: BP 141/80
--- NOTE | 2018-08-30 08:57 | NUR ---
TELEMETRY SR. UP AMBULATING HALLWAY WITH PT ASSIST. WILL CONT. PLAN OF CARE.
[2018-08-30 11:57] VITALS: BP 133/77
[2018-08-30 16:47] VITALS: BP 111/68
[2018-08-30 19:50] VITALS: BP 149/84
--- NOTE | 2018-08-30 22:03 | NUR ---
BEDTIME MEDS GIVEN. BANANA BAG IV UP AND INFUSING. PT ALERT/REQUESTED SNACK GIVEN.
[2018-08-30 23:55] VITALS: BP 142/80
[2018-08-31 03:55] VITALS: BP 146/78
[2018-08-31 04:30] VITALS: BP 178/93
[2018-08-31 08:10] VITALS: BP 151/90
[2018-08-31] MEDS ORDERED: LISINOPRIL10 MG PO (10:23)
[2018-08-31] MEDS ORDERED: CHRONULAC30 ML PO (10:25)
[2018-08-31] MEDS ORDERED: MAG-OX 400 MG400 MG PO (10:25)
[2018-08-31] MEDS ORDERED: VITAMIN D5000 UNIT PO (10:26)
--- NOTE | 2018-08-31 10:38 | NUR ---
UP AMBULATING HALLWAY WITH PT ASSIST.
--- NOTE | 2018-08-31 11:56 | MORECARE ---
CASE MANAGEMENT DISCHARGE SUMMARY PATIENT: LUZ DICKSON UNIT: [id number] ADM DATE: 08/23/18 AGE: 58 : 58 SEX: M ROOM/BED: D.2114 AUTHOR: COTY,DOC PHYSICIAN: REFERRING PHYSICIAN: JAGRUTI CHAIREZ MD DATE OF SERVICE: 08/31/18 Discharge Plan Patient Name: LUZ DICKSON Facility: [facility]:[place] : 1960 Planned Disposition: Inpatient Rehab Facility Anticipated Discharge Date: Discharge Date: Expected LOS: Initial Reviewer: [email or web address] Initial Review Date: 08/23/2018 Generated: 08/31/18 12:56 pm Comments DCP- Discharge Planning Updated by [email or web address]: Susan Garza on 08/31/18 10:[address] Patient Name: LUZ DICKSON Admission Status: ER Accout number: [id number] Admission Date: 08-23-2018 : 1960 Admission Diagnosis:CEREBRAL INFARCTION, UNSPECIFIED Attending: JAGRUTI CHAIREZ Current LOS: 8 Anticipated DC Date: Planned Disposition: Inpatient Rehab Facility Primary Insurance: [facility] MEDICARE SOLUTIONS Discharge Planning Comments: CM met with patient about discharge planning. PT WILL NO LONGER NEED REHAB. CM educated on Home Health, DME AND pt denies any needs at this time. Patient states hIs discharge plan is to return to home . States home environment is safe discharge. States son will drive him home upon discharge. CM will continue to follow and assist as needed with discharge planning needs. imm delivered, signed and placed in chart Chair Trimmer: Susan Garza DCP- Discharge Planning Updated by [email or web address]: Sepideh Floyd on 08/24/18 3:[address] CM met with patient at the bedside and explained my role. Received permission to proceed with the assessment. His speech is slightly slurred and he is slow in answering. Patient lives alone in [place], [place]. Was independent in his care. He has a brother, Randal Dickson, in [place]. 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 A person named Radha called and identified herself as his daughter. He states Radha is his sister in [place]. He stated information could be shared with Radha. Her contact phone number is [phone]. The nurse had received a telephone call from Radha. The primary nurse provided the contact number for Radha. He has 4 steps in the front to enter his home and 6 steps at a higher level in the back. DME- has a cane- denies any additional equipment. Has tub and shower. PCP- DR Talbot in [place], [place] Pharmacy- [facility] in [place], [place] Discussed dcp options. He would like acute rehab. Advised him of the providers [facility] and [facility]. Advised him he would be evaluated by PT/ OT/ Speech Therapy. Explained case management will follow to assist w/ next level of care needs. He will think about which rehab he wants. Speech therapy on the unit at this time. CM to follow. DCPIA - Discharge Planning Initial Assessment Updated by [email or web address]: Sepideh Floyd on 08/24/18 4:07 pm * Is the patient Alert and Oriented? Yes * How many steps to enter\\exit or inside your home? 4 steps fr * PCP DR Loyd Talbot Nurse Practitioner- [place] * Pharmacy [facility] in [place], [place] * Preadmission Environment Home Alone * ADLs Independent * Community resources currently utilized None * Please name any agencies selected above. N/A * Additional services required to return to the preadmission environment? Yes * Can the patient safely return to the preadmission environment? Yes * Has this patient been hospitalized within the prior 30 days at any hospital? No Coverage Notice Reviewer: [id number] Betzy Davis Garza Notice Issued Date-Time: 08/31/2018 11:25 Notice Type: IM Discharge Notice Notice Delivered To: Patient Relationship to Patient: Self Manager Research And Development Name: Delivery Method: HAND - Hand Delivered Maddy Days: Prior Verbal Notification: Recipient Understood Notice: Yes Recipient Signature: Yes Med Rec Note Co-signed by Attending: Coverage Notice Comment: Last DP export: 08/24/18 3:34 pm Patient Name: LUZ DICKSON Page [phone] at 1156 All edits/amendments must be made on the electronic document DICTATION DATE: 08/31/18 1156 ART GALLERY INTERNSHIP: LORENE 08/31/18 1156 RPT#: [id number] DC DATE: STATUS: ADM IN [facility] [address] [facility] [place] [address] END OF REPORT
--- NOTE | 2018-08-31 15:39 | NUR ---
IV AND TELEMETRY DCD. DC PLANS GIVEN. UNDERSTANDING VOICED. ESCORTED TO CAR BY W/C.
--- NOTE | 2018-09-01 08:52 | MORECARE ---
CASE MANAGEMENT DISCHARGE SUMMARY PATIENT: LUZ DICKSON UNIT: [id number] ADM DATE: 08/23/18 AGE: 58 : 58 SEX: M ROOM/BED: D.2114 AUTHOR: COTY,DOC PHYSICIAN: REFERRING PHYSICIAN: JAGRUTI CHAIREZ MD DATE OF SERVICE: 09/01/18 Discharge Plan Patient Name: LUZ DICKSON Facility: [facility]:[place] : 1960 Planned Disposition: Home Anticipated Discharge Date: 08/31/18 Discharge Date: 08/31/2018 Expected LOS: 8 Initial Reviewer: [email or web address] Initial Review Date: 08/23/2018 Generated: 09/01/18 9:52 am Comments DCP- Discharge Planning Updated by [id number]: Susan Garza on 08/31/18 10:[address] Patient Name: LUZ DICKSON Admission Status: ER Accout number: [id number] Admission Date: 08-23-2018 : 1960 Admission Diagnosis:CEREBRAL INFARCTION, UNSPECIFIED Attending: JAGRUTI CHAIREZ Current LOS: 8 Anticipated DC Date: Planned Disposition: Inpatient Rehab Facility Primary Insurance: [facility] MEDICARE SOLUTIONS Discharge Planning Comments: CM met with patient about discharge planning. PT WILL NO LONGER NEED REHAB. CM educated on Home Health, DME AND pt denies any needs at this time. Patient states hIs discharge plan is to return to home . States home environment is safe discharge. States son will drive him home upon discharge. CM will continue to follow and assist as needed with discharge planning needs. imm delivered, signed and placed in chart Shook Splicer: Susan Garza DCP- Discharge Planning Updated by [id number]: Sepideh Floyd on 08/24/18 3:[address] CM met with patient at the bedside and explained my role. Received permission to proceed with the assessment. His speech is slightly slurred and he is slow in answering. Patient lives alone in [place], [place]. Was independent in his care. He has a brother, Randal Dickson, in [place]. 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 A person named Radha called and identified herself as his daughter. He states Radha is his sister in [place]. He stated information could be shared with Radha. Her contact phone number is [phone]. The nurse had received a telephone call from Radha. The primary nurse provided the contact number for Radha. He has 4 steps in the front to enter his home and 6 steps at a higher level in the back. DME- has a cane- denies any additional equipment. Has tub and shower. PCP- DR Talbot in [place], [place] Pharmacy- [facility] in [place] Discussed dcp options. He would like acute rehab. Advised him of the providers [facility] and [facility]. Advised him he would be evaluated by PT/ OT/ Speech Therapy. Explained case management will follow to assist w/ next level of care needs. He will think about which rehab he wants. Speech therapy on the unit at this time. CM to follow. DCPIA - Discharge Planning Initial Assessment Updated by [id number]: Sepideh Floyd on 08/24/18 4:07 pm * Is the patient Alert and Oriented? Yes * How many steps to enter\\exit or inside your home? 4 steps fr * PCP DR Loyd Talbot Nurse Practitioner- [place] * Pharmacy [facility] in [place], [place] * Preadmission Environment Home Alone * ADLs Independent * Community resources currently utilized None * Please name any agencies selected above. N/A * Additional services required to return to the preadmission environment? Yes * Can the patient safely return to the preadmission environment? Yes * Has this patient been hospitalized within the prior 30 days at any hospital? No Coverage Notice Reviewer: [id number] Betzy Davis Garza Notice Issued Date-Time: 08/31/2018 11:25 Notice Type: IM Discharge Notice Notice Delivered To: Patient Relationship to Patient: Self Power Lineman Name: Delivery Method: HAND - Hand Delivered Maddy Days: Prior Verbal Notification: Recipient Understood Notice: Yes Recipient Signature: Yes Med Rec Note Co-signed by Attending: Coverage Notice Comment: Last DP export: 08/31/18 10:56 a Patient Name: LUZ DICKSON Page 73801 at 0852 All edits/amendments must be made on the electronic document DICTATION DATE: 09/01/18850 BANDER AND CELLOPHANER MACHINE: LORENE 09/01/18850 RPT#: [id number] DC DATE:08/31/18 STATUS: DIS IN [facility] [address] [place] [place] [address] END OF REPORT
--- NOTE | 2018-09-02 12:26 | OP ---
PATIENT NAME: LUZ ALEJANDRO MEDICAL RECORD: [id number] :58 LOCATION:D.M2 D.2114 ADMISSION DATE:08/23/18 SURGEON: AGUSTIN BRUNER MD DATE OF OPERATION: 08/29/2018 PROCEDURE: Left heart catheterization, selective coronary angiography, and right radial approach. CATHETERS: [place] catheter, radial sheath. The procedure was well tolerated. The patient returned to the ybarra, sheath removed. TR band was placed. FINDINGS: Left ventriculography in 30-degree WAY view: Normal wall motion and normal systolic function. CORONARY ANATOMY: LEFT MAIN: Left main is free of disease. LAD: Free of disease in the diagonal system. CIRCUMFLEX: Free of disease in the marginal system. RIGHT CORONARY ARTERY: Dominant artery, gives rise to PDA, free of disease. IMPRESSION: Normal left ventricular systolic function and normal coronary anatomy. TRANSINT:[id number] Voice Confirmation ID: [id number] DOCUMENT ID: [id number] AGUSTIN BRUNER MD at 1226 CC: [id number] DICTATION DATE: 08/29/18 154 SERVICE DOG TRAINER: 08/29/182051 DIS IN 08/31/18 [address] [place] [address]
== END 2018-08-31 15:39 | disposition home or self-care (01) | DRG 64 ==
LOC: D.ER 18:24 → D.MS 21:11 → D.EDHOLD 21:11 → D.MS 21:39 → D.M2 08-29 15:15
PROVIDERS: Family Medicine; General Practice; Internal Medicine Hematology & Oncology; ADMIT Family Medicine; ATTEND Family Medicine
DX: I63.9 Cerebral infarction, unspecified (principal); K72.00 Acute and subacute hepatic failure without coma; G81.91 Hemiplegia, unspecified affecting right dominant side; F10.231 Alcohol dependence with withdrawal delirium; I10 Essential (primary) hypertension; E87.6 Hypokalemia; D69.6 Thrombocytopenia, unspecified

== ENCOUNTER 2018-09-16 15:11 | Inpatient (IN) | payer MEDICARE, MEDICAID ==
[~2018-09-16] VITALS: Ht 175.3 cm; Wt 108.9 kg
[~2018-09-16 15:11] MED LIST: CHRONULAC30 ML PO; LISINOPRIL10 MG PO; LISINOPRIL5 MG PO; MAG-OX 400 MG400 MG PO; NORVASC5 MG PO; VITAMIN D5000 UNIT PO
[2018-09-16 16:15] LABS: BASOPHILS 0.3 % (0-2); EOSINOPHILS 0.6 % (0-7); HEMATOCRIT 38.8 % (42.0-54.0); HEMOGLOBIN 13.5 g/dL (13.5-17.5); IMMATURE GRANULOCYTES 0.4 % (0-5); LYMPHOCYTES 17.5 % (15-50); MCH 33.8 pg (26.0-34.0); MCHC 34.8 g/dL (31.0-37.0); MEAN PLATELET VOLUME 11.5 fL (7.4-10.4); MONOCYTES 13.9 % (2-11); NEUTROPHILS 67.3 % (40-80); RDW 13.1 % (11.5-14.5); WBC 7.3 10x3/uL (4.8-10.8)
[2018-09-16 16:18] LABS: PLATELET COUNT 121 10x3/uL (130-400)
[2018-09-16 16:35] LABS: ALBUMIN 3.2 g/dL (3.4-5.0); ANION GAP 17.4 mmol/L (8-16); BILIRUBIN - TOTAL 2.4 mg/dL (0.2-1.3); CALCIUM 9.5 mg/dL (8.5-10.1); CREATININE - SERUM 1.1 mg/dL (0.6-1.3); POTASSIUM - SERUM 3.4 mmol/L (3.5-5.1); PROTEIN - SERUM 7.9 g/dL (6.4-8.2)
[2018-09-16 17:19] LABS: CKMB 2.2 U/L (0.0-3.6); CREATINE KINASE 205 UL (21-232); TROPONIN-I < 0.017 ng/mL (0.000-0.060)
--- NOTE | 2018-09-16 18:49 | NUR ---
NAIMA COMPLETE AT 1847PM.
[2018-09-16 21:20] VITALS: BP 128/82
[2018-09-17 00:40] VITALS: BP 134/84
[2018-09-17 01:17] VITALS: BP 128/82; BMI 35.5
[2018-09-17 05:21] VITALS: BP 160/101
[2018-09-17 07:20] LABS: BASOPHILS 0.5 % (0-2); HEMATOCRIT 35.8 % (42.0-54.0); HEMOGLOBIN 12.4 g/dL (13.5-17.5); IMMATURE GRANULOCYTES 0.3 % (0-5); MCH 33.4 pg (26.0-34.0); MCHC 34.6 g/dL (31.0-37.0); MCV 96.5 fL (80.0-100.0); MEAN PLATELET VOLUME 11.7 fL (7.4-10.4); MONOCYTES 13.7 % (2-11); NEUTROPHILS 48.5 % (40-80); PLATELET COUNT 111 10x3/uL (130-400); RBC 3.71 10x6/uL (4.20-6.10); RDW 13.1 % (11.5-14.5); WBC 5.9 10x3/uL (4.8-10.8)
[2018-09-17 07:54] LABS: ALBUMIN 2.9 g/dL (3.4-5.0); ALKALINE PHOSPHATASE 64 U/L (46-116); ALT (SGPT) 55 U/L (10-68); CALC OSMOLALITY 279 mosm/kg (275-300); CALCIUM 9.1 mg/dL (8.5-10.1); CHLORIDE - SERUM 103 mmol/L (98-107); GLUCOSE 82 mg/dL (74-106); SODIUM 139 mmol/L (136-145); UREA NITROGEN 21 mg/dL (7-18)
[2018-09-17 08:03] LABS: CREATININE - SERUM 0.8 mg/dL (0.6-1.3); eGFR NON AFRICAN AMERICAN > 90 mL/min (90-120)
[2018-09-17 08:04] LABS: POTASSIUM - SERUM 2.8 mmol/L (3.5-5.1)
[2018-09-17 08:52] VITALS: BP 140/75
[2018-09-17 12:20] VITALS: BP 141/81
[2018-09-17 13:28] VITALS: BMI 35.4
--- NOTE | 2018-09-17 21:00 | NUR ---
RECEIVED PATIENT AWAKE AND ALERT. ORIENTED X 3. SPEECH CLEAR. DENIES PAIN. CALL LIGHT IN REACH. NO ACUTE DISTRESS OBSERVED.
[2018-09-17 21:01] VITALS: BP 130/78
--- NOTE | 2018-09-18 00:30 | NUR ---
PT SITTING UP IN BED WITHOUT DISTRESS, ALERT AND ORIENTED. INCONTINENT OF BM. PROVIDED NUNU CARE AND CHANGED LINEN. WITHOUT OTHER NEEDS OR PAIN. CL IN REACH, WILL CTM
[2018-09-18 01:54] VITALS: BP 165/83
[2018-09-18 05:41] VITALS: BP 142/84
[2018-09-18 05:46] LABS: BASOPHILS 0.4 % (0-2); EOSINOPHILS 2.1 % (0-7); HEMATOCRIT 35.8 % (42.0-54.0); HEMOGLOBIN 12.6 g/dL (13.5-17.5); IMMATURE GRANULOCYTES 0.2 % (0-5); LYMPHOCYTES 36.9 % (15-50); MCH 34.4 pg (26.0-34.0); MCHC 35.2 g/dL (31.0-37.0); MCV 97.8 fL (80.0-100.0); MEAN PLATELET VOLUME 11.9 fL (7.4-10.4); MONOCYTES 13.7 % (2-11); NEUTROPHILS 46.7 % (40-80); PLATELET COUNT 98 10x3/uL (130-400); RBC 3.66 10x6/uL (4.20-6.10); RDW 12.8 % (11.5-14.5); WBC 4.8 10x3/uL (4.8-10.8)
[2018-09-18 05:58] LABS: CALCIUM 8.8 mg/dL (8.5-10.1); CARBON DIOXIDE 26.6 mmol/L (21.0-32.0); CHLORIDE - SERUM 108 mmol/L (98-107); CREATININE - SERUM 0.7 mg/dL (0.6-1.3); GLUCOSE 96 mg/dL (74-106); SODIUM 143 mmol/L (136-145); eGFR NON AFRICAN AMERICAN > 90 mL/min (90-120)
[2018-09-18 05:59] LABS: CALC OSMOLALITY 284 mosm/kg (275-300); POTASSIUM - SERUM 3.5 mmol/L (3.5-5.1); UREA NITROGEN 13 mg/dL (7-18)
[2018-09-18 06:06] LABS: PLATELET ESTIMATE DECREASED
--- NOTE | 2018-09-18 07:40 | NUR ---
PT RESTING QUIETLY IN BED WATCHING TV. NO ACUTE DISTRESS NOTED. O2 @ 2L NC IN PLACE. DENIES PAIN AT THIS TIME. SALINE LOC TO LEFT AC PATENT AND INTACT, IV TO LEFT FOREARM WITH NS W/ 40KCL @ 75ML/HR INFUSING VIA PUMP. SITE WITHOUT REDNESS OR EDEMA. OBTAINED SPECIMEN FOR UA AT THIS TIME. DENIES FURTHER NEEDS AT THIS TIME. CL WITHIN REACH. ENCOURAGED TO CALL WITH NEEDS. CONTINUE POC. AMANDA MAT IN PLACE
[2018-09-18 08:30] VITALS: BP 172/97
[2018-09-18 09:08] LABS: APPEARANCE CLEAR (CLEAR); BILIRUBIN NEGATIVE (NEGATIVE); COLOR YELLOW (YELLOW); GLUCOSE NEGATIVE (NEGATIVE); KETONE NEGATIVE (NEGATIVE); NITRITE NEGATIVE (NEGATIVE); PROTEIN NEGATIVE (NEGATIVE); UROBILINOGEN NORMAL (NORMAL)
--- NOTE | 2018-09-18 11:10 | MORECARE ---
CASE MANAGEMENT DISCHARGE SUMMARY PATIENT: LUZ DICKSON UNIT: [id number] ADM DATE: 09/16/18 AGE: 58 : 58 SEX: M ROOM/BED: D.2231 AUTHOR: DOROTHEA ANSARI PHYSICIAN: REFERRING PHYSICIAN: NEYMAR DA SILVA MD DATE OF SERVICE: 09/18/18 Discharge Plan Patient Name: LUZ DICKSON Facility: [facility]:[place] : 1960 Planned Disposition: Home Anticipated Discharge Date: Discharge Date: Expected LOS: Initial Reviewer: [email or web address] Initial Review Date: 09/18/2018 Generated: 09/18/18 12:10 pm DCPIA - Discharge Planning Initial Assessment Updated by [email or web address]: Snow Gaines on 09/18/18 11:06 am * Is the patient Alert and Oriented? Yes * How many steps to enter\exit or inside your home? 4/0 * PCP Dr. Talbot in [place], states he see the [facility] * Pharmacy [facility] in [place] * Preadmission Environment Home Alone * ADLs Independent * Equipment Cane Walker * List name and contact numbers for known caregivers / representatives who currently or will assist patient after discharge: Randal Dickson - brother - unknown number Radha - - [phone] * Verbal permission to speak to the caregivers and representatives has been obtained from the patient. Yes * Community resources currently utilized None * Additional services required to return to the preadmission environment? No * Can the patient safely return to the preadmission environment? Yes * Has this patient been hospitalized within the prior 30 days at any hospital? Yes Patient Name: LUZ DICKSON Page 43315 at 1110 All edits/amendments must be made on the electronic document DICTATION DATE: 09/18/181108 LIQUEFIED NATURAL GAS PLANT OPERATOR: LORENE 09/18/18 110 RPT#: [id number] DC DATE: STATUS: ADM IN [facility] [address] [id number] END OF REPORT
--- NOTE | 2018-09-18 11:17 | MORECARE ---
CASE MANAGEMENT DISCHARGE SUMMARY PATIENT: LUZ DICKSON UNIT: [id number] ADM DATE: 09/16/18 AGE: 58 : 58 SEX: M ROOM/BED: D.2231 AUTHOR: DOROTHEA ANSARI PHYSICIAN: REFERRING PHYSICIAN: NEYMAR DA SILVA MD DATE OF SERVICE: 09/18/18 Discharge Plan Patient Name: LUZ DICKSON Facility: [facility]:[place] : 1960 Planned Disposition: Home Anticipated Discharge Date: Discharge Date: Expected LOS: Initial Reviewer: [email or web address] Initial Review Date: 09/18/2018 Generated: 09/18/18 12:17 pm Comments DCP- Discharge Planning Updated by [id number]: Snow Gaines on 09/18/18 10:[address] Patient Name: LUZ DICKSON Admission Status: ER Accout number: [id number] Admission Date: 09-16-2018 : 1960 Admission Diagnosis: Attending: NEYMAR DA SILVA Current LOS: 2 Anticipated DC Date: Planned Disposition: Home Primary Insurance: [facility] MEDICARE SOLUTIONS Discharge Planning Comments: CM met with patient to complete initial dc planning assessment. CM educated patient on the CM role and verbal consent given by patient to complete assessment. Patient lives at home alone. At discharge patient plans to return and feels this is a safe discharge. He states he is independent with all ADL's and AIDL's. He states his brother lives in [place] and will take him home. 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 States "I would know it if you hadn't asked me." CM discussed availability of home health, rehab services, and medical equipment. Patient denied known discharge needs at this time. CM will continue to follow and will assist as needed with dc plans/needs. Shower Enclosure Installer: Snow Gaines DCPIA - Discharge Planning Initial Assessment Updated by [email or web address]: Snow Gaines on 09/18/18 11:06 am * Is the patient Alert and Oriented? Yes * How many steps to enter\\exit or inside your home? 4/0 * PCP Dr. Talbot in [place], states he see the [facility] * Pharmacy [facility] in [place] * Preadmission Environment Home Alone * ADLs Independent * Equipment Cane Walker * List name and contact numbers for known caregivers / representatives who currently or will assist patient after discharge: Randal Dickson - brother - unknown number Radha - - [phone] * Verbal permission to speak to the caregivers and representatives has been obtained from the patient. Yes * Community resources currently utilized None * Additional services required to return to the preadmission environment? No * Can the patient safely return to the preadmission environment? Yes * Has this patient been hospitalized within the prior 30 days at any hospital? Yes Last DP export: 09/18/18 10:10 a Patient Name: LUZ DICKSON Page 42213 at 1117 All edits/amendments must be made on the electronic document DICTATION DATE: 09/18/181116 MAMMOGRAPHY TECHNICIAN: LORENE 09/18/181116 RPT#: [id number] DC DATE: STATUS: ADM IN [facility] [address] [place] [address] END OF REPORT
[2018-09-18 12:07] VITALS: BP 125/73
[2018-09-18 17:06] VITALS: BP 137/81
--- NOTE | 2018-09-18 19:30 | NUR ---
PT IS ALERT. SLOW TO RESPOND TO QUESTIONS BUT ANSWERS APPROPRIATELY. PLEASENT. INCONTINENT AT TIMES. HAS 2L NC. A LEFT AC IV THAT IS SALINE LOCKED. AND A LEFT FOREARM INFUSING NS WITH 40 OF K @ 75 ML/HR. DENIES PAIN AT THIS TIME. DIMINISHED LOWER LOBES BILATERALLY. YELLOW GOWN ON. AMANDA ALARM ON. SIDE RAILS UP X 2. DENIES FURTHER CARE AT THIS TIME. CALL LIGHT IN REACH AND DEMONSTRATES HOW TO USE CORRECTLY.
[2018-09-18 20:00] VITALS: BP 111/78
[2018-09-19] VITALS: BP 137/88
[2018-09-19 04:00] VITALS: BP 140/85
--- NOTE | 2018-09-19 08:14 | NUR ---
PT RESTING IN BED WATCHING TV. NO S/S OF ACUTE DISTRESS. CL IN PLACE.
[2018-09-19 09:01] VITALS: BP 145/73
[2018-09-19 10:04] LABS: BASOPHILS 0.6 % (0-2); HEMATOCRIT 37.9 % (42.0-54.0); HEMOGLOBIN 13.1 g/dL (13.5-17.5); LYMPHOCYTES 32.1 % (15-50); MCH 33.6 pg (26.0-34.0); MCHC 34.6 g/dL (31.0-37.0); MCV 97.2 fL (80.0-100.0); MEAN PLATELET VOLUME 12.1 fL (7.4-10.4); MONOCYTES 12.2 % (2-11); NEUTROPHILS 52.1 % (40-80); PLATELET COUNT 113 10x3/uL (130-400); RDW 12.6 % (11.5-14.5)
[2018-09-19 10:17] LABS: CARBON DIOXIDE 25.1 mmol/L (21.0-32.0); CHLORIDE - SERUM 104 mmol/L (98-107); GLUCOSE 99 mg/dL (74-106); POTASSIUM - SERUM 3.9 mmol/L (3.5-5.1); SODIUM 139 mmol/L (136-145)
[2018-09-19 10:19] LABS: CALC OSMOLALITY 275 mosm/kg (275-300); CREATININE - SERUM 0.5 mg/dL (0.6-1.3); UREA NITROGEN 7 mg/dL (7-18); eGFR NON AFRICAN AMERICAN > 90 mL/min (90-120)
[2018-09-19 13:07] VITALS: BP 141/82
[2018-09-19 17:23] VITALS: BP 132/70
--- NOTE | 2018-09-19 18:43 | NUR ---
PT RESTING IN BED WATCHING TV. ASKED PT IF HER WILL EAT, PT STATES, "I WILL JUST GIVE ME TIME" NO S/S OF ACUTE DISTRESS. CL IN PLACE.
--- NOTE | 2018-09-19 19:45 | NUR ---
SUPINE IN BED, ALERT, ORIENTED TO SELF. BELIEVES HE IS IN [place](UNSURE WHERE IN [place]). REORIENTED TO PLACE, TIME. STATES HE'S PROBABLY IN THE HOSPITAL DUE TO A FALL. REORIENTED TO SITUATION. DENIES PAIN. LAUGHS OCCASIONALLY. DENIES NEEDS. WILL CONTINUE TO MONITOR.
[2018-09-19 20:00] VITALS: BP 137/82
[2018-09-20] VITALS: BP 141/81
--- NOTE | 2018-09-20 03:22 | NUR ---
I have reviewed this patient and I concur with the Shift Assessment completed by the Licensed Practical Nurse today this shift.
[2018-09-20 04:00] VITALS: BP 135/89
--- NOTE | 2018-09-20 08:18 | NUR ---
PATIENT RESTING IN BED WITH NO NEEDS VOICED. RESPIRATIONS REGULAR AND NON-LABORED. CL IN REACH
[2018-09-20 08:42] VITALS: BP 133/80
[2018-09-20] MEDS ORDERED: K-DUR20 MEQ PO (10:41)
[2018-09-20] MEDS ORDERED: LEVOFLOXACIN500 MG PO (10:41)
--- NOTE | 2018-09-20 11:13 | NUR ---
SPOKE WITH PT RE TOBACCO QUITLINE. HE DECLINES TO ENROLL AT THIS TIME.
--- NOTE | 2018-09-20 12:59 | NUR ---
Rehab Note- Acute Inpatient Rehab prescreen order received. The patient has [facility] Insurane and will require a PreAuth prior to an acute inpatient rehab stay. Has a pending OT & PT Eval that will be needed for the PreAuth process. The patient was recently in the acute hospital for a CVA & An insurance Auth was aquired on 08/28/18 from [facility] & at that time the patient refused to come to acute inpatient rehab & d/c'd home on 08/31/18. Will follow at this time & begin the PreAuth process. Thank you for this referral! Lila Lomeli RN Clinical Liaison, [facility] Rehab
--- NOTE | 2018-09-20 13:12 | NUR ---
PATIENT HAD PREVIOUS ORDERS FOR DISCHARGE TODAY. PATIENT IS VERY UNSTABLE WITH STANDING AND UNABLE TO AMBULATE MORE THAN 2-3 STEPS. WILL PT/OT EVAL AND EVAL FOR INPATIENT REHAB SATURDAY
[2018-09-20 16:46] VITALS: BP 134/80
--- NOTE | 2018-09-20 19:35 | NUR ---
LYING IN BED. ALERT AND ORIENTED TO SELF ONLY. CONFUSED. SPEECH DIFF TO UNDERSTAND AT TIMES. SLOW TO RESPOND. AMANDA ALARM IN USE FOR PT SAFETY. RESP EVEN AND NONLABORED. INCONT OF B/B. NS WITH 40 MEQ KCL INFUSING IN LT WRIST WITHOUT DIFF. DENIES PAIN. SCDS IN USE. SR ELEVATED X2. CL IN REACH.
[2018-09-20 20:00] VITALS: BP 143/84
[2018-09-21] VITALS: BP 130/89
[2018-09-21 04:00] VITALS: BP 137/79
--- NOTE | 2018-09-21 08:41 | NUR ---
PT RESTING IN BED.AAO TO SELF ONLY. PLESANT. DENIES PAIN. NO S/S OF ACUTE DISTRESS. CL IN PLACE.
[2018-09-21 08:51] VITALS: BP 149/83
[2018-09-21 12:41] VITALS: BP 160/61
[2018-09-21 17:21] VITALS: BP 143/75
--- NOTE | 2018-09-21 18:14 | NUR ---
PT RESTING IN BED. CONFUSED. PT UNABLE TO FEED SELF. UNABLE TO HOLD BURGER IN HAND. CUT UP HAMBURGER AND FED PT BY FORK. NO S/S OF ACUTE DISTRESS. CL IN PLACE.
--- NOTE | 2018-09-21 19:10 | NUR ---
LYING IN BED. ALERT AND ORIENTED TO SELF ONLY. LAUGHS INAPPROPRIATELY. CONFUSED. ABLE TO ANSWER SIMPLE QUESTIONS. HAS DIFF FOLLOWING SOME COMMANDS. COORDINATION IS OFF. REDNESS/EXCORIATION NOTED TO GROIN AND BUTTOCKS. INCONT OF B/B. BUTT PASTE APPLIED. RESP EVEN AND NONLABORED. NONPROD COUGH NOTED. AMANDA ALARM IN USE FOR PT SAFETY. MVI INFUSING @ 125 MLHR IN LT WRIST WITHOUT DIFF. CL IN REACH. SR ELEVATED X2.
[2018-09-21 20:15] VITALS: BP 136/79
--- NOTE | 2018-09-21 23:24 | NUR ---
INCONT OF B/B. BUTT PASTE APPLIED. LINENS CHANGED. AMANDA ALARM ON. CL IN REACH.
[2018-09-22] VITALS: BP 131/79
--- NOTE | 2018-09-22 01:00 | NUR ---
INCONT OF B/B. BUTT PASTE APPLIED. TURNED TO LT SIDE. CL IN REACH. AMANDA ON.
[2018-09-22 04:00] VITALS: BP 131/77
--- NOTE | 2018-09-22 04:10 | NUR ---
INCONT OF B/B. BUTT PASTE APPLIED. LYING SUPINE. CL IN REACH. AMANDA ALARM ON.
[2018-09-22 06:29] LABS: BASOPHILS 0.3 % (0-2); EOSINOPHILS 3.5 % (0-7); HEMATOCRIT 37.9 % (42.0-54.0); HEMOGLOBIN 13.1 g/dL (13.5-17.5); IMMATURE GRANULOCYTES 0.3 % (0-5); LYMPHOCYTES 24.9 % (15-50); MCH 33.4 pg (26.0-34.0); MCHC 34.6 g/dL (31.0-37.0); MCV 96.7 fL (80.0-100.0); MEAN PLATELET VOLUME 11.5 fL (7.4-10.4); MONOCYTES 8.6 % (2-11); NEUTROPHILS 62.4 % (40-80); PLATELET COUNT 131 10x3/uL (130-400); RBC 3.92 10x6/uL (4.20-6.10); RDW 12.7 % (11.5-14.5); WBC 7.8 10x3/uL (4.8-10.8)
[2018-09-22 06:35] LABS: CALC OSMOLALITY 274 mosm/kg (275-300); CALCIUM 9.4 mg/dL (8.5-10.1); CARBON DIOXIDE 26.4 mmol/L (21.0-32.0); CHLORIDE - SERUM 104 mmol/L (98-107); CREATININE - SERUM 0.7 mg/dL (0.6-1.3); GLUCOSE 96 mg/dL (74-106); POTASSIUM - SERUM 4.1 mmol/L (3.5-5.1); SODIUM 138 mmol/L (136-145); UREA NITROGEN 9 mg/dL (7-18); eGFR NON AFRICAN AMERICAN > 90 mL/min (90-120)
[2018-09-22 09:15] VITALS: BP 117/71
--- NOTE | 2018-09-22 10:34 | NUR ---
MORNING ASSESSMENT COMPLETE. SEE ASSESSMENT FLOWSHEET FOR FURTHER DETAILS. PT LYING IN BED. DENIES NEEDS AT THIS TIME. CL IN REACH. SIDE RAILS UP X3 FOR PT SAFETY. BED IN LOWEST POSITION.
[2018-09-22 14:01] VITALS: BP 102/70
--- NOTE | 2018-09-22 16:19 | NUR ---
SPOKE WITH SHIRA AT DR SNOW'S OFFICE. UNABLE TO CLEAR PATIENT FOR MRI, NO FAMILY TO CALL. PER SHIRA BROOKE SAID TO CHANGE MRI TO CT HEAD WITHOUT. CALLED AL[facility] PTS NURSE AND INFORMED HER OF THE CHANGE.
[2018-09-22 18:29] VITALS: BP 108/62
[2018-09-22 20:00] VITALS: BP 102/53
[2018-09-23] VITALS: BP 123/70
[2018-09-23 04:00] VITALS: BP 126/63
--- NOTE | 2018-09-23 04:05 | NUR ---
PT UP IN CHAIR. EYES CLOSED. NO SIGNS OF DISTRESS. BREATHING EVEN AND UNLABORED. CALL LIGHT IN REACH. BED LOWERED AND LOCKED. WILL CONTINUE PLAN OF CARE.
--- NOTE | 2018-09-23 04:07 | NUR ---
I have reviewed this patient and I concur with the Shift Assessment completed by the Licensed Practical Nurse today this shift.
[2018-09-23 08:31] LABS: BASOPHILS 0.2 % (0-2); EOSINOPHILS 1.6 % (0-7); HEMOGLOBIN 12.3 g/dL (13.5-17.5); IMMATURE GRANULOCYTES 0.1 % (0-5); MCH 33.2 pg (26.0-34.0); MCHC 34.2 g/dL (31.0-37.0); MEAN PLATELET VOLUME 10.6 fL (7.4-10.4); MONOCYTES 10.2 % (2-11); NEUTROPHILS 69.9 % (40-80); PLATELET COUNT 123 10x3/uL (130-400); RBC 3.71 10x6/uL (4.20-6.10); RDW 12.6 % (11.5-14.5); WBC 8.3 10x3/uL (4.8-10.8)
[2018-09-23 08:45] VITALS: BP 140/62
[2018-09-23 08:49] LABS: ALBUMIN 2.8 g/dL (3.4-5.0); ALKALINE PHOSPHATASE 71 U/L (46-116); ALT (SGPT) 54 U/L (10-68); BILIRUBIN - TOTAL 0.95 mg/dL (0.2-1.3); CALC OSMOLALITY 276 mosm/kg (275-300); CHLORIDE - SERUM 105 mmol/L (98-107); CREATININE - SERUM 0.7 mg/dL (0.6-1.3); GLUCOSE 103 mg/dL (74-106); POTASSIUM - SERUM 4.4 mmol/L (3.5-5.1); SODIUM 138 mmol/L (136-145); eGFR NON AFRICAN AMERICAN > 90 mL/min (90-120)
[2018-09-23 08:51] LABS: UREA NITROGEN 14 mg/dL (7-18)
--- NOTE | 2018-09-23 09:50 | NUR ---
Rehab Note- Received voicemail from Monica with [facility] and the patient has been denied an inpatient acute rehab stay d/t his needs can be met at a lower level of care at a SNF. A peer to peer can be set up by contacting Monica @ [phone] [phone] by [phone] on Sunday 09/24. Spoke with SURY Adamson. Thank you for this referral! Lila Lomeli RN Clinical Liaison, [facility] Rehab
--- NOTE | 2018-09-23 11:58 | MORECARE ---
CASE MANAGEMENT DISCHARGE SUMMARY PATIENT: LUZ DICKSON UNIT: [id number] ADM DATE: 09/16/18 AGE: 58 : 58 SEX: M ROOM/BED: D.2231 AUTHOR: DOROTHEA ANSARI PHYSICIAN: REFERRING PHYSICIAN: NEYMAR DA SILVA MD DATE OF SERVICE: 09/23/18 Discharge Plan Patient Name: LUZ DICKSON Facility: [facility]:[place] : 1960 Planned Disposition: Home Anticipated Discharge Date: Discharge Date: Expected LOS: Initial Reviewer: [email or web address] Initial Review Date: 09/18/2018 Generated: 09/23/18 12:58 pm Comments DCP- Discharge Planning Updated by [email or web address]: Snow Gaines on 09/23/18 10:[address] I received a call from Lila that inpatient rehab was denied by his insurance. I called his sister, Radha, and informed her that his condition has declined since admission and he will need a skilled facility to have rehab. She states that she will pack her bags and come to [place] today so she can assist with discharge plans. She gave me her brother's phone number, but states she is the decision maker. Patient's brother, Randal, is in the room at this time and I gave him the [facility] for SNF. He states that he will discuss this with his sister and chose a skilled facility after reviewing the list. He states that she will probably want him to go to [facility] because it is close to his home. CM will continue to follow and assist with discharge planning/needs. Randal Dickson - brother - [phone] Radha - sister - [phone] DCP- Discharge Planning Updated by [email or web address]: Snow Gaines on 09/18/18 10:[address] Patient Name: LUZ DICKSON Admission Status: ER Accout number: [id number] Admission Date: 09-16-2018 : 1960 Admission Diagnosis: Attending: NEYMAR DA SILVA Current LOS: 2 Anticipated DC Date: Planned Disposition: Home Primary Insurance: [facility] [employer] Discharge Planning Comments: CM met with patient to complete initial dc planning assessment. CM educated patient on the CM role and verbal consent given by patient to complete assessment. Patient lives at home alone. At discharge patient plans to return and feels this is a safe discharge. He states he is independent with all ADL's and AIDL's. He states his brother lives in [place] and will take him home. 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 States "I would know it if you hadn't asked me." CM discussed availability of home health, rehab services, and medical equipment. Patient denied known discharge needs at this time. CM will continue to follow and will assist as needed with dc plans/needs. Make Up Artist: Snow Gaines DCPIA - Discharge Planning Initial Assessment Updated by [email or web address]: Snow Gaines on 09/18/18 11:06 am * Is the patient Alert and Oriented? Yes * How many steps to enter\\exit or inside your home? 4/0 * PCP Dr. Talbot in [place], states he see the [facility] * Pharmacy [facility] in [place] * Preadmission Environment Home Alone * ADLs Independent * Equipment Cane Walker * List name and contact numbers for known caregivers / representatives who currently or will assist patient after discharge: Randal Dickson - brother - unknown number Radha - - [phone] * Verbal permission to speak to the caregivers and representatives has been obtained from the patient. Yes * Community resources currently utilized None * Additional services required to return to the preadmission environment? No * Can the patient safely return to the preadmission environment? Yes * Has this patient been hospitalized within the prior 30 days at any hospital? Yes Last DP export: 09/18/18 10:17 a Patient Name: LUZ DICKSON Page [phone] at 1158 All edits/amendments must be made on the electronic document DICTATION DATE: 09/23/18 115 RAILROAD TRACK INSPECTOR: LORENE 09/23/18 1158 RPT#: [id number] DC DATE: STATUS: ADM IN [facility] [address] [place] [address] END OF REPORT
--- NOTE | 2018-09-23 12:48 | NUR ---
OT NOTE: PT REMAINS VERY CONFUSED. UNABLE TO FOLLOW SIMPLE COMMANDS. CONSTANT LAUGHING IN RESPONSE TO QUESTIONS. UNABLE TO IDENTIFY BROTHER. DOES NOT KNOW WHERE HE IS X 4 ATTEMPTS WITH INFO PROVIDED AND 6 SECOND INTERVALS. PERSEVERATED ON "[place]" TODAY. THAT IS OUR RESPONSE FOR ALL QUESTIONS. MAX ASSIST FOR BED MOB AND MOD ASSIST FOR STATIC SITTING ON EOB; PT CONTINUALLY LEANING TO L SIDE; UNABLE TO ORIENT TO MIDLINE. MAX ASSIST FOR SIMPLE GROOMING AND HYGIENE TASKS. PT INCONT OF B AND B..PT CLEANED AND PULL UPS PLACED ON PT; LINENS REMOVED. MAX ASSIST FOR TRANSFER FROM BED TO CHAIR. ABLE TO HOLD CUP AND CRACKER AND BRING TO MOUTH WITH MINIMAL SPILLAGE TODAY. PT DOES BETTER WITH FINGER FOODS VS USING UTENSILS. ROVERTO GALVAN, OTR/L
--- NOTE | 2018-09-23 12:52 | NUR ---
PT OUT OF ROOM AT THIS TIME FOR PROCEDURE
[2018-09-23 13:03] VITALS: Ht 175.3 cm; Wt 108.9 kg
[2018-09-23 13:14] LABS: FOLATE (FOLIC ACID) - SERUM >20.0 ng/mL (>3.0)
[2018-09-23 14:30] VITALS: BP 120/74
--- NOTE | 2018-09-23 15:03 | NUR ---
OT NOTE: PT COMPLETED BED MOB TASKS MAX A SECONDARY TO CONFUSION. PT COMPLETED BUE AROM AXS... LUE IS WEAKER. PT COMPLETED GROOMING TASK WITH MIN/MOD A. THANK YOU, JESUS RENTERIA
[2018-09-23 16:47] VITALS: BP 135/66
--- NOTE | 2018-09-23 18:45 | NUR ---
I have reviewed this patient and I concur with the Shift Assessment completed by the Licensed Practical Nurse today this shift.
[2018-09-23 20:00] VITALS: BP 119/62
--- NOTE | 2018-09-23 20:30 | NUR ---
RESTIGN QUEITLY WITH NO DISTESS NOTED. RESP EVEN AND UNALBORED. IV INFUSING TO LFA WITHOUT REDNESS OR EDEMA NOTED. CL IN REACH
[2018-09-24] VITALS: BP 138/76
[2018-09-24 04:00] VITALS: BP 155/44
--- NOTE | 2018-09-24 04:38 | NUR ---
I have reviewed this patient and I concur with the Shift Assessment completed by the Licensed Practical Nurse today this shift.
[2018-09-24 06:43] LABS: BASOPHILS 0.5 % (0-2); EOSINOPHILS 4.8 % (0-7); HEMATOCRIT 37.7 % (42.0-54.0); HEMOGLOBIN 12.8 g/dL (13.5-17.5); IMMATURE GRANULOCYTES 0.2 % (0-5); LYMPHOCYTES 24.3 % (15-50); MCH 33.2 pg (26.0-34.0); MCV 97.7 fL (80.0-100.0); MONOCYTES 11.3 % (2-11); NEUTROPHILS 58.9 % (40-80); PLATELET COUNT 143 10x3/uL (130-400); RBC 3.86 10x6/uL (4.20-6.10); RDW 12.5 % (11.5-14.5); WBC 6.6 10x3/uL (4.8-10.8)
[2018-09-24 07:08] LABS: ALBUMIN 2.9 g/dL (3.4-5.0); ALKALINE PHOSPHATASE 73 U/L (46-116); ALT (SGPT) 56 U/L (10-68); BILIRUBIN - TOTAL 1.01 mg/dL (0.2-1.3); CALC OSMOLALITY 278 mosm/kg (275-300); CALCIUM 9.4 mg/dL (8.5-10.1); CARBON DIOXIDE 25.9 mmol/L (21.0-32.0); CHLORIDE - SERUM 105 mmol/L (98-107); CREATININE - SERUM 0.6 mg/dL (0.6-1.3); GLUCOSE 90 mg/dL (74-106); POTASSIUM - SERUM 3.9 mmol/L (3.5-5.1); PROTEIN - SERUM 7.2 g/dL (6.4-8.2); SODIUM 141 mmol/L (136-145); eGFR NON AFRICAN AMERICAN > 90 mL/min (90-120)
[2018-09-24 07:17] LABS: UREA NITROGEN 6 mg/dL (7-18)
--- NOTE | 2018-09-24 08:31 | NUR ---
PT RESTING IN BED. ALERT TO SELF ONLY. REPOSITIONED PT WITH CONCRETE PANEL INSTALLER. CONCRETE PANEL INSTALLER IN FEEDING PT. REDDNESS NOTED TO BUTTOCKS AND NUNU AREA. NYSTATIN PER MD ORDER PUT ON AFFECTED AREA. NO S/S OF ACUTE DISTRESS. CL IN PLACE
[2018-09-24 08:39] VITALS: BP 135/78
--- NOTE | 2018-09-24 11:45 | NUR ---
OT NOTE: SOME IMPROVEMENT NOTED TODAY. BED MOB REMAINS AT MOD/MAX ASSISST FOR SUPINE TO SIT, HOWEVER, PT WAS ABLE TO MAINTAIN BALANCE ON EOB WITH ONLY OCCASSIONAL SUPPORT VS MAX ASSIST ON PREVIOUS DAYS. PT REMAINS ORIENTED TO SELF ONLY, BUT TODAY, HE WAS ABLE TO PROVIDE BOTH BROTHER AND SISTERS NAMES ( WHICH HE WAS UNABLE TO DO YESTERDAY) PT WAS BETTER WITH 1 STEP COMMANDS AND IMPROVED WITH SIMPLE ADLS. ABLE TO WASH FACE WITH SET UP; MIN ASSIST AND MOD CUES FOR UPPER BODY AND CHEST. MAX ASSIST WITH LE AND PERINEAL. UNABLE TO KWAN SOCKS, HOWEVER, AT THIS TIME, PT WAS VERY FATIGUED AND REQUIRING INCREASED ASSIST WITH STATIC SITTING BALANCE. SIT TO STAND WITH MOD ASSIST; MAX ASSIST X 2 WITH TRANSFER FROM BED TO CHAIR. PT CONTINUES TO STUDDER STEP AND IS UNABLE TO ADVANCE EITHER FOOT FORWARD GREATER THAN 1/2". ROVERTO GALVAN, OTR/L
--- NOTE | 2018-09-24 12:19 | MORECARE ---
CASE MANAGEMENT DISCHARGE SUMMARY PATIENT: LUZ DICKSON UNIT: [id number] ADM DATE: 09/16/18 AGE: 58 : 58 SEX: M ROOM/BED: D.2231 AUTHOR: DOROTHEA ANSARI PHYSICIAN: REFERRING PHYSICIAN: NEYMAR DA SILVA MD DATE OF SERVICE: 09/24/18 Discharge Plan Patient Name: LUZ DICKSON Facility: [facility]:[place] : 1960 Planned Disposition: Home Anticipated Discharge Date: Discharge Date: Expected LOS: Initial Reviewer: [email or web address] Initial Review Date: 09/18/2018 Generated: 09/24/18 1:19 pm Comments DCP- Discharge Planning Updated by [email or web address]: Snow Gaines on 09/24/18 11:[address] Patient's sister, Radha Cheung, is in the room. I met with her concerning SNF placement. Patient is more alert today but unable to make decisions at this time. His sister states that she came in late last night and has not seen the facilities yet. She will meet again with her brother, Randal, and inform me where to send the referral. CM will continue to follow and assist with discharge planning/needs. DCP- Discharge Planning Updated by [email or web address]: Snow Gaines on 09/23/18 10:[address] I received a call from Lila that inpatient rehab was denied by his insurance. I called his sister, Radha, and informed her that his condition has declined since admission and he will need a skilled facility to have rehab. She states that she will pack her bags and come to [place] today so she can assist with discharge plans. She gave me her brother's phone number, but states she is the decision maker. Patient's brother, Randal, is in the room at this time and I gave him the T[facility] for SNF. He states that he will discuss this with his sister and chose a skilled facility after reviewing the list. He states that she will probably want him to go to [facility] because it is close to his home. CM will continue to follow and assist with discharge planning/needs. Randal Dickson - brother - [phone] Radha - sister - [phone] DCP- Discharge Planning Updated by [email or web address]: Snow Gaines on 09/18/18 10:[address] Patient Name: LUZ DICKSON Admission Status: ER Accout number: [id number] Admission Date: 09-16-2018 : 1960 Admission Diagnosis: Attending: NEYMAR DA SILVA Current LOS: 2 Anticipated DC Date: Planned Disposition: Home Primary Insurance: [facility] MEDICARE SOLUTIONS Discharge Planning Comments: CM met with patient to complete initial dc planning assessment. CM educated patient on the CM role and verbal consent given by patient to complete assessment. Patient lives at home alone. At discharge patient plans to return and feels this is a safe discharge. He states he is independent with all ADL's and AIDL's. He states his brother lives in [place] and will take him home. 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 States "I would know it if you hadn't asked me." CM discussed availability of home health, rehab services, and medical equipment. Patient denied known discharge needs at this time. CM will continue to follow and will assist as needed with dc plans/needs. Focuser: Snow Gaines DCPIA - Discharge Planning Initial Assessment Updated by [id number]: Snow Gaines on 09/18/18 11:06 am * Is the patient Alert and Oriented? Yes * How many steps to enter\\exit or inside your home? 4/0 * PCP Dr. Talbot in [place], states he see the [facility] * Pharmacy [facility] in [place] * Preadmission Environment Home Alone * ADLs Independent * Equipment Cane Walker * List name and contact numbers for known caregivers / representatives who currently or will assist patient after discharge: Randal Dickson - brother - unknown number Radha Bo [phone] * Verbal permission to speak to the caregivers and representatives has been obtained from the patient. Yes * Community resources currently utilized None * Additional services required to return to the preadmission environment? No * Can the patient safely return to the preadmission environment? Yes * Has this patient been hospitalized within the prior 30 days at any hospital? Yes Last DP export: 09/23/18 10:58 am Patient Name: LUZ DICKSON Page 47591 at 1219 All edits/amendments must be made on the electronic document DICTATION DATE: 09/24/181217 MOLDED GOODS INSPECTOR TRIMMER: LORENE 09/24/181217 RPT#: [id number] DC DATE: STATUS: ADM IN [facility] [address] [place] [address] END OF REPORT
[2018-09-24 13:28] VITALS: BP 131/64
--- NOTE | 2018-09-24 14:12 | NUR ---
OT NOTE: RETURNED IN PM WITH FISH STRAIGHTENER TO ASSIST PT BACK TO BED. PT STATED THAT HE WAS NOT READY BUT EXPLAINED THAT WE NEEDED TO ASSIST HIM WHILE WE WERE AVAILABLE. SIT TO STAND WITH MAX ASSIST. ATTEMPTED NUMEROUS TIMES TO ENCOURAGE ANTERIOR WT SHIFT AND ANT PELVIC TILT. PT ABLSOLUTELY NOT ABLE TO PERFORM THIS. PT CONTINUES BEING UNABLE TO ADVANCE STEPS, HE LEANS POSTERIORLY AND ALL HIS WT IS BACKWARDS. VERY APRAXIC GAIT AND MOBILITY. BED MOB WITH MAX ASSIST FOR STAND TO SIT; SIT TO SUPINE; AND SCOOTING. ROVERTO GALVAN, OTR/L
--- NOTE | 2018-09-24 16:51 | MORECARE ---
CASE MANAGEMENT DISCHARGE SUMMARY PATIENT: LUZ DICKSON UNIT: [id number] ADM DATE: 09/16/18 AGE: 58 : 58 SEX: M ROOM/BED: D.2231 AUTHOR: COTYDOC PHYSICIAN: REFERRING PHYSICIAN: NEYMAR DA SILVA MD DATE OF SERVICE: 09/24/18 Discharge Plan Patient Name: LUZ DICKSON Facility: [facility]:[place] : 1960 Planned Disposition: Home Anticipated Discharge Date: Discharge Date: Expected LOS: Initial Reviewer: [email or web address] Initial Review Date: 09/18/2018 Generated: 09/24/18 5:51 pm Comments DCP- Discharge Planning Updated by [email or web address]: Snow Gaines on 09/24/18 3:[address] Met with sister and brother concerning SNF. They have chosen [facility] as their first choice. I have called remi Reese for [facility], and clinical faxed. CM will continue to follow and assist with discharged planning/needs. DCP- Discharge Planning Updated by [email or web address]: Snow Gaines on 09/24/18 11:[address] Patient's sister, Radha Cheung, is in the room. I met with her concerning SNF placement. Patient is more alert today but unable to make decisions at this time. His sister states that she came in late last night and has not seen the facilities yet. She will meet again with her brother, Randal, and inform me where to send the referral. CM will continue to follow and assist with discharge planning/needs. DCP- Discharge Planning Updated by [email or web address]: Snow Gaines on 09/23/18 10:[address] I received a call from Lila that inpatient rehab was denied by his insurance. I called his sister, Radha, and informed her that his condition has declined since admission and he will need a skilled facility to have rehab. She states that she will pack her bags and come to [place] today so she can assist with discharge plans. She gave me her brother's phone number, but states she is the decision maker. Patient's brother, Randal, is in the room at this time and I gave him the T[facility] for SNF. He states that he will discuss this with his sister and chose a skilled facility after reviewing the list. He states that she will probably want him to go to [facility] because it is close to his home. CM will continue to follow and assist with discharge planning/needs. Randal Dickson - brother - [phone] Radha Bo sister - [phone] DCP- Discharge Planning Updated by [email or web address]: Snow Gaines on 09/18/18 10:[address] Patient Name: LUZ DICKSON Admission Status: ER Accout number: [id number] Admission Date: 09-16-2018 : 1960 Admission Diagnosis: Attending: NEYMAR DA SILVA Current LOS: 2 Anticipated DC Date: Planned Disposition: Home Primary Insurance: [facility] [employer] Discharge Planning Comments: CM met with patient to complete initial dc planning assessment. CM educated patient on the CM role and verbal consent given by patient to complete assessment. Patient lives at home alone. At discharge patient plans to return and feels this is a safe discharge. He states he is independent with all ADL's and AIDL's. He states his brother lives in [place] and will take him home. 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 States "I would know it if you hadn't asked me." CM discussed availability of home health, rehab services, and medical equipment. Patient denied known discharge needs at this time. CM will continue to follow and will assist as needed with dc plans/needs. Pot Runner: Snow Gaines DCPIA - Discharge Planning Initial Assessment Updated by [id number]: Snow Gaines on 09/18/18 11:06 am * Is the patient Alert and Oriented? Yes * How many steps to enter\\exit or inside your home? 4/0 * PCP Dr. Talbot in [place], states he see the [facility] * Pharmacy [facility] in [place] * Preadmission Environment Home Alone * ADLs Independent * Equipment Cane Walker * List name and contact numbers for known caregivers / representatives who currently or will assist patient after discharge: Randal Dickson - brother - unknown number Radha mckenzie - [phone] * Verbal permission to speak to the caregivers and representatives has been obtained from the patient. Yes * Community resources currently utilized None * Additional services required to return to the preadmission environment? No * Can the patient safely return to the preadmission environment? Yes * Has this patient been hospitalized within the prior 30 days at any hospital? Yes External Providers External Provider: [facility] Next Contact Date: Service Request Date: Service Type: Resolution: Reviewer: Comments: Coverage Notice Reviewer: [email or web address] Betzy Gaines Notice Issued Date-Time: 09/24/2018 16:45 Notice Type: Patient Choice Letter Notice Delivered To: Family Member Relationship to Patient: Sister Product Picker Name: Joyce Cheung Delivery Method: HAND - Hand Delivered Maddy Days: Prior Verbal Notification: Recipient Understood Notice: Yes Recipient Signature: Yes Med Rec Note Co-signed by Attending: Coverage Notice Comment: [facility] for [facility] [address] [address] [facility] 2nd Last DP export: 09/24/18 11:19 am Patient Name: LUZ DICKSON Page [id number] at 1651 All edits/amendments must be made on the electronic document DICTATION DATE: 09/24/181649 TAPEMAN: LORENE 09/24/181649 RPT#: [id number] DC DATE: STATUS: ADM IN [facility] [address] [place] [address] END OF REPORT
[2018-09-24 18:03] VITALS: BP 133/69
--- NOTE | 2018-09-24 18:46 | NUR ---
PT RESTING IN BED. SISTER REPORTS PT IS ITCHING. GAVE PT SOME LOTION TO USE. NO S/S OF ACUTE DISTRESS. CL IN PLACE.
[2018-09-24 20:00] VITALS: BP 129/81
--- NOTE | 2018-09-24 20:00 | NUR ---
LYING QUEITLY WITH NO DISTRESS NOTED. NO COMPLAITNS VOICED. CL IN REACH
--- NOTE | 2018-09-25 03:09 | NUR ---
LYING QUEITLY WITH NO DISTRESS NOTED. RESP UNLABORED . NO DISTRESS NOTED.
[2018-09-25 04:00] VITALS: BP 133/76
--- NOTE | 2018-09-25 04:53 | NUR ---
I have reviewed this patient and I concur with the Shift Assessment completed by the Licensed Practical Nurse today this shift.
[2018-09-25 05:03] LABS: BASOPHILS 0.6 % (0-2); EOSINOPHILS 5.1 % (0-7); HEMATOCRIT 38.9 % (42.0-54.0); HEMOGLOBIN 13.5 g/dL (13.5-17.5); IMMATURE GRANULOCYTES 0.1 % (0-5); LYMPHOCYTES 33.9 % (15-50); MCH 33.1 pg (26.0-34.0); MCHC 34.7 g/dL (31.0-37.0); MEAN PLATELET VOLUME 11.7 fL (7.4-10.4); MONOCYTES 9.9 % (2-11); NEUTROPHILS 50.4 % (40-80); PLATELET COUNT 167 10x3/uL (130-400); RBC 4.08 10x6/uL (4.20-6.10); RDW 12.2 % (11.5-14.5); WBC 6.9 10x3/uL (4.8-10.8)
[2018-09-25 05:05] LABS: MCV 95.3 fL (80.0-100.0)
[2018-09-25 05:28] LABS: ALKALINE PHOSPHATASE 81 U/L (46-116); ALT (SGPT) 53 U/L (10-68); BILIRUBIN - TOTAL 0.86 mg/dL (0.2-1.3); CALC OSMOLALITY 275 mosm/kg (275-300); CALCIUM 9.6 mg/dL (8.5-10.1); CARBON DIOXIDE 24.5 mmol/L (21.0-32.0); CHLORIDE - SERUM 104 mmol/L (98-107); CREATININE - SERUM 0.6 mg/dL (0.6-1.3); GLUCOSE 98 mg/dL (74-106); PROTEIN - SERUM 7.5 g/dL (6.4-8.2); SODIUM 139 mmol/L (136-145); UREA NITROGEN 7 mg/dL (7-18); eGFR NON AFRICAN AMERICAN > 90 mL/min (90-120)
--- NOTE | 2018-09-25 09:05 | NUR ---
[id number] RESTING IN BED. SISTER AT BEDSIDE FEEDING PT. NO S/S OF ACUTE DISTRESS. CL IN PLACE.
[2018-09-25 09:29] VITALS: BP 121/69
--- NOTE | 2018-09-25 11:28 | NUR ---
Nutrition Follow Up: Chart reviewed. Diet: Regular [facility] Soft PO Intake: 100% meal avg BM: 09/24/18 Labs reviewed Meds noted including Banana Bag, Lactulose Rec continue regular diet with [employer] REPAIR recs for consistencies. RD following.
--- NOTE | 2018-09-25 13:01 | NUR ---
OT NOTE: NO SIGNIFICANT CHANGE FROM YESTERDAY. SISTER AT BEDSIDE. BED MOB WITH MAX ASSIST; SITTING BALANCE WITH MIN/MOD ASSIST TODAY; MOD ASSIST WITH SIMPLE GROOMING ( INCREASED DIFFICULTY WITH WASHING FACE, HANDS, AND CHEST TODAY). PT REMAINS INCONT OF B AND B AND REQUIRED MOD/MAX ASSIST WITH CLEANING LES AND PERINEAL AREA. MAX ASSIST WITH DONNING GOWN, PULL UPS, AND SOCKS. CONT WITH MAX ASSIST AND STUTTERING GAIT FOR TRANSFERS. ROVERTO GALVAN, OTR/L
[2018-09-25 13:35] VITALS: BP 116/66
--- NOTE | 2018-09-25 15:46 | MORECARE ---
CASE MANAGEMENT DISCHARGE SUMMARY PATIENT: LUZ DICKSON UNIT: [id number] ADM DATE: 09/16/18 AGE: 58 : 58 SEX: M ROOM/BED: D.2231 AUTHOR: COTY,DOC PHYSICIAN: REFERRING PHYSICIAN: NEYMAR DA SILVA MD DATE OF SERVICE: 09/25/18 Discharge Plan Patient Name: LUZ DICKSON Facility: [facility]:[place] : 1960 Planned Disposition: Home Anticipated Discharge Date: Discharge Date: Expected LOS: Initial Reviewer: [email or web address] Initial Review Date: 09/18/2018 Generated: 09/25/18 4:46 pm Comments DCP- Discharge Planning Updated by [email or web address]: Snow Gaines on 09/25/18 2:[address] [facility] states they have received insurance auth. She states it is too late in the day to come today, they can take him in the morning. Facundo Talbot APN notified. I informed his sister, Dejan, she is in the room. CM will continue to follow and assist with discharge planning/needs. DCP- Discharge Planning Updated by [email or web address]: Snow Kuhnalvino on 09/24/18 3:[address] Met with sister and brother concerning SNF. They have chosen [facility] as their first choice. I have called remi Reese for [facility], and clinical faxed. CM will continue to follow and assist with discharged planning/needs. DCP- Discharge Planning Updated by [id number]: Snow Kuhnalvino on 09/24/18 11:[address] Patient's sister, Radha Cheung, is in the room. I met with her concerning SNF placement. Patient is more alert today but unable to make decisions at this time. His sister states that she came in late last night and has not seen the facilities yet. She will meet again with her brother, Randal, and inform me where to send the referral. CM will continue to follow and assist with discharge planning/needs. DCP- Discharge Planning Updated by [email or web address]: Snow Eder on 09/23/18 10:[address] I received a call from Lila that inpatient rehab was denied by his insurance. I called his sister, Radha, and informed her that his condition has declined since admission and he will need a skilled facility to have rehab. She states that she will pack her bags and come to [place] today so she can assist with discharge plans. She gave me her brother's phone number, but states she is the decision maker. Patient's brother, Randal, is in the room at this time and I gave him the TOMAS for SNF. He states that he will discuss this with his sister and chose a skilled facility after reviewing the list. He states that she will probably want him to go to [facility] because it is close to his home. CM will continue to follow and assist with discharge planning/needs. Randal Dickson - brother - [phone] Radha - sister - [phone] DCP- Discharge Planning Updated by [email or web address]: Snow Gaines on 09/18/18 10:[address] Patient Name: LUZ DICKSON Admission Status: ER Accout number: [id number] Admission Date: 09-16-2018 : 1960 Admission Diagnosis: Attending: NEYMAR DA SILVA Current LOS: 2 Anticipated DC Date: Planned Disposition: Home Primary Insurance: [facility] MEDICARE SOLUTIONS Discharge Planning Comments: CM met with patient to complete initial dc planning assessment. CM educated patient on the CM role and verbal consent given by patient to complete assessment. Patient lives at home alone. At discharge patient plans to return and feels this is a safe discharge. He states he is independent with all ADL's and AIDL's. He states his brother lives in [place] and will take him home. 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 I asked for his brother's phone number and he is unable to recall it at this time. States "I would know it if you hadn't asked me." CM discussed availability of home health, rehab services, and medical equipment. Patient denied known discharge needs at this time. CM will continue to follow and will assist as needed with dc plans/needs. Population Health Manager: Snow Gaines DCPIA - Discharge Planning Initial Assessment Updated by [email or web address]: Snow Gaines on 09/18/18 11:06 am * Is the patient Alert and Oriented? Yes * How many steps to enter\\exit or inside your home? 4/0 * PCP Dr. Talbot in [place], states he see the AUTOMOTIVE SERVICE ADVISOR Sol * Pharmacy [facility] in [place] * Preadmission Environment Home Alone * ADLs Independent * Equipment Cane Walker * List name and contact numbers for known caregivers / representatives who currently or will assist patient after discharge: Randal Dickson - brother - unknown number Radha - - [phone] * Verbal permission to speak to the caregivers and representatives has been obtained from the patient. Yes * Community resources currently utilized None * Additional services required to return to the preadmission environment? No * Can the patient safely return to the preadmission environment? Yes * Has this patient been hospitalized within the prior 30 days at any hospital? Yes Coverage Notice Reviewer: [id number] Gaines Notice Issued Date-Time: 09/24/2018 16:45 Notice Type: Patient Choice Letter Notice Delivered To: Family Member Relationship to Patient: Sister Garment Form Assembler Name: Joyce Cheung Delivery Method: HAND - Hand Delivered Maddy Days: Prior Verbal Notification: Recipient Understood Notice: Yes Recipient Signature: Yes Med Rec Note Co-signed by Attending: Coverage Notice Comment: TOMAS for [facility] 1st and [facility] 2nd Reviewer: [id number] Betzy Gaines Notice Issued Date-Time: 09/25/2018 15:36 Notice Type: IM Discharge Notice Notice Delivered To: Family Member Relationship to Patient: Sister Garment Form Assembler Name: Joyce Cheung Delivery Method: HAND - Hand Delivered Maddy Days: Prior Verbal Notification: Recipient Understood Notice: Yes Recipient Signature: Yes Med Rec Note Co-signed by Attending: Coverage Notice Comment: IMM explained, signed, given, copy placed in MR Last DP export: 09/24/18 3:51 pm Patient Name: LUZ DICKSON Page [phone] at 1546 All edits/amendments must be made on the electronic document DICTATION DATE: 09/25/181544 MARBLE HELPER: LORENE 09/25/181544 RPT#: [id number] DC DATE: STATUS: ADM IN [facility] [address] [place] [address] END OF REPORT
--- NOTE | 2018-09-25 16:31 | NUR ---
OT NOTE: PT COMPLETED HYGIENE TASKS WITH GONZALEZ Clark. PT COMPLETED BED MOB WITH GONZALEZ Clark. THANK YOU, JESUS RENTERIA
[2018-09-25 18:07] VITALS: BP 115/73
--- NOTE | 2018-09-25 19:47 | NUR ---
PT RESTING IN BED. BED SOILED. TEACHER DRAMATICS IN CHANGING PT. NO S/S OF ACUTE DISTRESS. CL IN PLACE.
[2018-09-25 20:00] VITALS: BP 130/71
--- NOTE | 2018-09-25 22:12 | NUR ---
AWAKE,ALERT,PATIENT ORIENTED TO SELF ONLY. RESP EVEN AND UNALBORED,. NO DISTRESS NOTED. IV TO RFA WITHOUT REDNESS OR EDEMA NOTED. INCONTINENT OF B/B WITH NUNU CARE GIVEN. CL IN REACH. BED ALARM ON.
[2018-09-26] VITALS: BP 121/71
[2018-09-26 04:00] VITALS: BP 116/66
--- NOTE | 2018-09-26 04:18 | NUR ---
I have reviewed this patient and I concur with the Shift Assessment completed by the Licensed Practical Nurse today this shift.
[2018-09-26 06:57] LABS: CALC OSMOLALITY 275 mosm/kg (275-300); CALCIUM 9.2 mg/dL (8.5-10.1); CARBON DIOXIDE 24.8 mmol/L (21.0-32.0); CHLORIDE - SERUM 104 mmol/L (98-107); CREATININE - SERUM 0.6 mg/dL (0.6-1.3); GLUCOSE 99 mg/dL (74-106); MAGNESIUM - SERUM 1.6 mg/dL (1.8-2.4); SODIUM 139 mmol/L (136-145); UREA NITROGEN 8 mg/dL (7-18); eGFR NON AFRICAN AMERICAN > 90 mL/min (90-120)
[2018-09-26 07:08] LABS: BASOPHILS 0.6 % (0-2); EOSINOPHILS 4.8 % (0-7); HEMATOCRIT 38.1 % (42.0-54.0); HEMOGLOBIN 13.2 g/dL (13.5-17.5); IMMATURE GRANULOCYTES 0.3 % (0-5); LYMPHOCYTES 32.6 % (15-50); MCH 33.2 pg (26.0-34.0); MCHC 34.6 g/dL (31.0-37.0); MCV 95.7 fL (80.0-100.0); MEAN PLATELET VOLUME 11.7 fL (7.4-10.4); MONOCYTES 9.9 % (2-11); NEUTROPHILS 51.8 % (40-80); PLATELET COUNT 173 10x3/uL (130-400); RBC 3.98 10x6/uL (4.20-6.10); RDW 12.3 % (11.5-14.5); WBC 6.7 10x3/uL (4.8-10.8)
--- NOTE | 2018-09-26 07:15 | NUR ---
REC'D IN BED AWAKE AND ALERT. RESP EVEN AND UNLABORED WITH NO DISTRESS NOTED. CAN EXPRESS NEEDS AND WANTS. NO C/O NOTED OR VOICED OF YET TODAY. DRESSING INTACT AND CHANGES PER ORDERS. C/L IN REACH AT BEDSIDE.
[2018-09-26 09:39] VITALS: BP 132/79
--- NOTE | 2018-09-26 09:44 | MORECARE ---
CASE MANAGEMENT DISCHARGE SUMMARY PATIENT: LUZ DICKSON UNIT: [id number] ADM DATE: 09/16/18 AGE: 58 : 58 SEX: M ROOM/BED: D.2231 AUTHOR: DOROTHEA ANSARI PHYSICIAN: REFERRING PHYSICIAN: NEYMAR DA SILVA MD DATE OF SERVICE: 09/26/18 Discharge Plan Patient Name: LUZ DICKSON Facility: [facility]:[place] : 1960 Planned Disposition: Home Anticipated Discharge Date: Discharge Date: Expected LOS: Initial Reviewer: [email or web address] Initial Review Date: 09/18/2018 Generated: 09/26/18 10:44 am Comments DCP- Discharge Planning Updated by [email or web address]: Snow Eder on 09/26/18 8:[address] Received order for discharge. I notified remi Hudson for [facility], clinical faxed. His sister is aware of discharge to [facility] today and states she will be here at 10. Family in agreement to discharge today. He is going to a skilled bed. I have not gotten a cotton picking machine operator time yet. CM will continue to follow and assist with discharge planning/needs. DCP- Discharge Planning Updated by [email or web address]: Snow Kuhnalvino on 09/25/18 2:[address] [facility] states they have received insurance auth. She states it is too late in the day to come today, they can take him in the morning. Facundo Talbot APN notified. I informed his sister, Dejan, she is in the room. CM will continue to follow and assist with discharge planning/needs. DCP- Discharge Planning Updated by [email or web address]: Snow Eder on 09/24/18 3:[address] Met with sister and brother concerning SNF. They have chosen [facility] their first choice. I have called remi Reese for [facility], and clinical faxed. CM will continue to follow and assist with discharged planning/needs. DCP- Discharge Planning Updated by [email or web address]: Snow Gaines on 09/24/18 11:[address] Patient's sister, Radha Cheung, is in the room. I met with her concerning SNF placement. Patient is more alert today but unable to make decisions at this time. His sister states that she came in late last night and has not seen the facilities yet. She will meet again with her brother, Randal, and inform me where to send the referral. CM will continue to follow and assist with discharge planning/needs. DCP- Discharge Planning Updated by [email or web address]: Snow Gaines on 09/23/18 10:[address] I received a call from Lila that inpatient rehab was denied by his insurance. I called his sister, Radha, and informed her that his condition has declined since admission and he will need a skilled facility to have rehab. She states that she will pack her bags and come to [place] today so she can assist with discharge plans. She gave me her brother's phone number, but states she is the decision maker. Patient's brother, Randal, is in the room at this time and I gave him the TOMAS for SNF. He states that he will discuss this with his sister and chose a skilled facility after reviewing the list. He states that she will probably want him to go to [facility] because it is close to his home. CM will continue to follow and assist with discharge planning/needs. Randal Dickson - brother - [phone] Radha - sister - [phone] DCP- Discharge Planning Updated by [email or web address]: Snow Gaines on 09/18/18 10:[address] Patient Name: LUZ DICKSON Admission Status: ER Accout number: [id number] Admission Date: 09-16-2018 : 1960 Admission Diagnosis: Attending: NEYMAR DA SILVA Current LOS: 2 Anticipated DC Date: Planned Disposition: Home Primary Insurance: [facility] MEDICARE SOLUTIONS Discharge Planning Comments: CM met with patient to complete initial dc planning assessment. CM educated patient on the CM role and verbal consent given by patient to complete assessment. Patient lives at home alone. At discharge patient plans to return and feels this is a safe discharge. He states he is independent with all ADL's and AIDL's. He states his brother lives in [place] and will take him home. 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 States "I would know it if you hadn't asked me." CM discussed availability of home health, rehab services, and medical equipment. Patient denied known discharge needs at this time. CM will continue to follow and will assist as needed with dc plans/needs. Windows Desktop Support: Snow Gaines DCPIA - Discharge Planning Initial Assessment Updated by [email or web address]: Snow Gaines on 09/18/18 11:06 am * Is the patient Alert and Oriented? Yes * How many steps to enter\\exit or inside your home? 4/0 * PCP Dr. Talbot in [place], states he see the HEADER UP Sol * Pharmacy [facility] in [place] * Preadmission Environment Home Alone * ADLs Independent * Equipment Cane Walker * List name and contact numbers for known caregivers / representatives who currently or will assist patient after discharge: Randal Dickson - brother - unknown number Radha - - [phone] * Verbal permission to speak to the caregivers and representatives has been obtained from the patient. Yes * Community resources currently utilized None * Additional services required to return to the preadmission environment? No * Can the patient safely return to the preadmission environment? Yes * Has this patient been hospitalized within the prior 30 days at any hospital? Yes Coverage Notice Reviewer: [id number] Betzy Gaines Notice Issued Date-Time: 09/24/2018 16:45 Notice Type: Patient Choice Letter Notice Delivered To: Family Member Relationship to Patient: Sister Medical Practitioners Name: Joyce Cheung Delivery Method: HAND - Hand Delivered Maddy Days: Prior Verbal Notification: Recipient Understood Notice: Yes Recipient Signature: Yes Med Rec Note Co-signed by Attending: Coverage Notice Comment: TOMAS for [facility] 1st and [facility] 2nd Reviewer: [id number] Betzy Gaines Notice Issued Date-Time: 09/25/2018 15:36 Notice Type: IM Discharge Notice Notice Delivered To: Family Member Relationship to Patient: Sister Medical Practitioners Name: Joyce Cheung Delivery Method: HAND - Hand Delivered Maddy Days: Prior Verbal Notification: Recipient Understood Notice: Yes Recipient Signature: Yes Med Rec Note Co-signed by Attending: Coverage Notice Comment: IMM explained, signed, given, copy placed in MR Last DP export: 09/25/18 2:46 pm Patient Name: LUZ DICKSON Page [phone] at 0944 All edits/amendments must be made on the electronic document DICTATION DATE: 09/26/18942 ORTHODONTIC ASSISTANT: LORENE 09/26/18942 RPT#: [id number] DC DATE: STATUS: ADM IN [facility] [address] [place] [address] END OF REPORT
--- NOTE | 2018-09-26 12:17 | NUR ---
OT NOTE: BED MOB WITH MAX ASSIST FOR SUPINE TO SIT; AFTER GETTING PT TO EOB, HE WAS ABLE TO STATIC SIT WITHOUT SUPPORT FOR APPROX 10 MIN; PROVIDED WASH CLOTH AND PT WAS ABLE TO WASH FACE, HANDS, UPPER BODY, AND CHEST. PT PERSEVERATED ON SEVERAL AREAS AND REQUIRED TACTILE CUES TO CONTINUE. MAX ASSIST TO KWAN PULL UP, SHORTS, SHIRT, AND SOCKS. ASSISTED WITH INITITATING BREAKFAST..PT HAVING INCREASED DIFFICULTY WITH FEEDING DUE TO COORDINATION DEFECITS. REMAINS DISORIENTED TO PLACE AND TIME. INCREASED TIME SPENT TODAY ON STANDING AND MIDLINE ORIENTATION. PT DOING BETTER FOR SITTING BALANCE, HOWEVER, STANDING BALANCE REMAINS POOR. PT LEANS BACKWARDS AND IS UNABLE TO LEAN FORWARD WITH VERBAL OR TACTILE COMMANDS. WHEN TACTILY BRINGING PTS HIPS FORWARD, THIS CAUSES HIM TO LEAN BACKWARDS EVEN HARDER. STEPS AND TRANSFERS REMAIN AT MAX ASSIST X 2 LEVEL.. NO CHANGES WITH USE OF RW VS AWNING CRAFTSPERSON. ROVERTO GALVAN, OTR/L
--- NOTE | 2018-09-26 14:07 | NUR ---
DC TO [facility] AT THIS TIME REPORT GIVEN TO PUJA MACK. PT IN STABLE CONDITION UPON DC. AT BEDSIDE. VOICE UNDERSTANDING OF DC ORDERS. FACILITY VAN HERE TO TRANSPORT RESIDENT TO FACILITY.
== END 2018-09-26 14:09 | DRG 193 ==
LOC: D.ER 15:11 → D.MS 17:48 → D.EDHOLD 17:48 → D.MS 18:44
PROVIDERS: Emergency Medicine; Family Medicine; ADMIT Legal Medicine; ATTEND Legal Medicine
DX: J18.1 Lobar pneumonia, unspecified organism (principal); G92 Toxic encephalopathy; I10 Essential (primary) hypertension; E87.6 Hypokalemia; D69.6 Thrombocytopenia, unspecified; T67.9XXA Effect of heat and light, unspecified, initial encounter

== ENCOUNTER 2018-10-05 09:33 | Observation (INO) | payer MEDICARE, MEDICAID ==
[~2018-10-05] VITALS: Ht 175.3 cm; Wt 81.6 kg
[~2018-10-05 09:33] MED LIST changes: +K-DUR20 MEQ PO; +LEVOFLOXACIN500 MG PO
--- NOTE | 2018-10-05 09:42 | NUR ---
FSBS PER EMS 212.
[2018-10-05 10:07] LABS: UDS - AMPHET NEGATIVE QUAL (NEGATIVE); UDS - BARB NEGATIVE QUAL (NEGATIVE); UDS - BENZO NEGATIVE QUAL (NEGATIVE); UDS - COCAINE NEGATIVE QUAL (NEGATIVE); UDS - OPIATE NEGATIVE QUAL (NEGATIVE); UDS - PCP NEGATIVE QUAL (NEGATIVE); UDS - THC NEGATIVE QUAL (NEGATIVE)
[2018-10-05 10:09] LABS: APPEARANCE CLEAR (CLEAR); BACTERIA FEW /hpf (NONE SEEN); BILIRUBIN NEGATIVE (NEGATIVE); COLOR YELLOW (YELLOW); EPITHELIAL CELLS RARE /hpf (0-5); GLUCOSE NEGATIVE (NEGATIVE); KETONE NEGATIVE (NEGATIVE); MUCUS <1+ /lpf (NONE SEEN); NITRITE NEGATIVE (NEGATIVE); PROTEIN TRACE mg/dL (NEGATIVE); RED CELLS - URINE OCC /hpf (0-5); SPECIFIC GRAVITY 1.025 (1.005-1.020); UROBILINOGEN NORMAL (NORMAL); WHITE CELLS - URINE NSEEN /hpf (0-5)
[2018-10-05 10:17] VITALS: BP 98/57
[2018-10-05 10:47] LABS: BASOPHILS 0.6 % (0-2); EOSINOPHILS 3.3 % (0-7); HEMATOCRIT 39.8 % (42.0-54.0); HEMOGLOBIN 14.1 g/dL (13.5-17.5); IMMATURE GRANULOCYTES 0.1 % (0-5); LYMPHOCYTES 23.3 % (15-50); MCH 33.3 pg (26.0-34.0); MCHC 35.4 g/dL (31.0-37.0); MCV 94.1 fL (80.0-100.0); MEAN PLATELET VOLUME 11.8 fL (7.4-10.4); NEUTROPHILS 63.7 % (40-80); PLATELET COUNT 152 10x3/uL (130-400); RBC 4.23 10x6/uL (4.20-6.10); RDW 12.1 % (11.5-14.5); WBC 7.2 10x3/uL (4.8-10.8)
[2018-10-05 11:04] LABS: ALBUMIN 3.2 g/dL (3.4-5.0); ALKALINE PHOSPHATASE 99 U/L (46-116); ALT (SGPT) 74 U/L (10-68); BILIRUBIN - TOTAL 0.66 mg/dL (0.2-1.3); CALC OSMOLALITY 279 mosm/kg (275-300); CALCIUM 9.9 mg/dL (8.5-10.1); CHLORIDE - SERUM 104 mmol/L (98-107); GLUCOSE 108 mg/dL (74-106); POTASSIUM - SERUM 4.1 mmol/L (3.5-5.1); PROTEIN - SERUM 7.5 g/dL (6.4-8.2); SODIUM 138 mmol/L (136-145); UREA NITROGEN 21 mg/dL (7-18); eGFR NON AFRICAN AMERICAN 81 mL/min (90-120)
[2018-10-05 11:11] LABS: APTT 28.8 SECONDS (22.8-39.4); INR 1.2 (0.85-1.17); PROTIME 14.7 SECONDS (11.6-15.0)
[2018-10-05 11:15] LABS: CKMB 0.6 U/L (0.0-3.6); CREATINE KINASE 47 UL (21-232); MAGNESIUM - SERUM 1.6 mg/dL (1.8-2.4); THYROID STIMULATING HORMONE 2.23 uIU/mL (0.36-3.74); TROPONIN-I < 0.017 ng/mL (0.000-0.060)
[2018-10-05 12:36] VITALS: BP 99/55
--- NOTE | 2018-10-05 16:00 | NUR ---
REC'D PT FROM ROBOTICS SPECIALIST. X 2 ASSIST TO MOVE PT TO BED. AAOX1. CONFUSED. LOW TONE, SPEECH GARBLED. NO S/S OF ACUTE DISTRESS. CL IN PLACE.
[2018-10-05 17:49] VITALS: BP 107/66
[2018-10-05 18:44] VITALS: BP 106/66; BMI 26.6
--- NOTE | 2018-10-05 19:30 | NUR ---
PT ALERT BUT DOES NOT RESPOND. DOES NOT TURN WHEN PROMPTED BY NURSING STAFF. DOES NOT APPEAR TO BE DISTRESSED. PT IS INCONTINENT OF BOWEL AND BLADDEDR. SCD'D ON BILATERALLY. FALL PRECAUTIONS IN PLACE. HAS LEFT HAND IV THAT IS SALINE LOCKED AT THIS TIME. CALL LIGHT IN REACH.
[2018-10-05 21:25] VITALS: BP 107/64
[2018-10-06 01:19] VITALS: BP 108/64
--- NOTE | 2018-10-06 03:04 | NUR ---
I have reviewed this patient and I concur with the Shift Assessment completed by the Licensed Practical Nurse today this shift.
[2018-10-06 05:32] LABS: BASOPHILS 0.3 % (0-2); EOSINOPHILS 5.6 % (0-7); HEMATOCRIT 36.8 % (42.0-54.0); HEMOGLOBIN 13.2 g/dL (13.5-17.5); IMMATURE GRANULOCYTES 0.3 % (0-5); LYMPHOCYTES 28.1 % (15-50); MCH 33.4 pg (26.0-34.0); MCHC 35.9 g/dL (31.0-37.0); MCV 93.2 fL (80.0-100.0); MEAN PLATELET VOLUME 11.3 fL (7.4-10.4); MONOCYTES 8.3 % (2-11); NEUTROPHILS 57.4 % (40-80); PLATELET COUNT 124 10x3/uL (130-400); RBC 3.95 10x6/uL (4.20-6.10); WBC 7.5 10x3/uL (4.8-10.8)
[2018-10-06 05:49] LABS: CALCIUM 9.1 mg/dL (8.5-10.1); CARBON DIOXIDE 23.2 mmol/L (21.0-32.0); CHLORIDE - SERUM 103 mmol/L (98-107); GLUCOSE 98 mg/dL (74-106); MAGNESIUM - SERUM 1.9 mg/dL (1.8-2.4); PHOSPHOROUS 4.8 mg/dL (2.5-4.9); POTASSIUM - SERUM 3.8 mmol/L (3.5-5.1); SODIUM 137 mmol/L (136-145)
[2018-10-06 05:59] LABS: CALC OSMOLALITY 274 mosm/kg (275-300); CREATININE - SERUM 0.7 mg/dL (0.6-1.3); UREA NITROGEN 14 mg/dL (7-18); eGFR NON AFRICAN AMERICAN > 90 mL/min (90-120)
[2018-10-06 09:01] VITALS: BP 113/70
--- NOTE | 2018-10-06 09:16 | NUR ---
AWAKE AND ALERT. RESPONDS TO VERBAL STIMULATION. NON VERBAL SO UNABLE TO ASSESS ORIENTATION. LUNGS ARE CLEAR BILATERALLY,NO COUGH NOTED. SKIN IS INTACT WITHOUT REDNESS. IV TO RIGHT HAND IS PATENT WITHOUT REDNESS AT INSERTION SITE. NO NEEDS. NOTED. STAFF IS FEEDING BREAKFAST AT THIS TIME.
--- NOTE | 2018-10-06 10:30 | NUR ---
ATE MOST OF BREAKFAST. NO NEEDS NOTED.
[2018-10-06 12:52] VITALS: Ht 175.3 cm; Wt 81.6 kg
[2018-10-06 13:05] VITALS: BP 113/73
[2018-10-06 17:15] VITALS: BP 106/67
--- NOTE | 2018-10-06 18:40 | NUR ---
NOT EATING RIGHT NOW. STAFF WILL FEED. NO CHANGES NOTED. DENIES NEEDS.
--- NOTE | 2018-10-06 19:40 | NUR ---
PT SITTING UP IN BED WITHOUT DISTRESS, EATING DINNER BY SELF THAT IS SET UP IN FRONT OF HIM. PT IS NONVERBAL BUT ALERT. UNABLE TO ASSESS ORIENTATION. PT FOLLOWS SOME COMMANDS. INCONTINENT OF BOWEL AND BLADDER, TOTAL ASSIST. BED ALARM ON. FALL PRECAUTIONS IN PLACE. SCDS ON. IV LEFT HAND SL, FLUSHES EASILY. CL IN REACH, BED LOWEST POSITION, SRX2. WILL CTM
[2018-10-06 20:00] VITALS: BP 98/53
[2018-10-07 03:59] VITALS: BP 119/70
[2018-10-07 05:41] LABS: BASOPHILS 0.5 % (0-2); EOSINOPHILS 1.9 % (0-7); HEMATOCRIT 39.6 % (42.0-54.0); IMMATURE GRANULOCYTES 0.3 % (0-5); LYMPHOCYTES 19.9 % (15-50); MCH 32.9 pg (26.0-34.0); MCHC 35.4 g/dL (31.0-37.0); MEAN PLATELET VOLUME 11.9 fL (7.4-10.4); MONOCYTES 7.4 % (2-11); PLATELET COUNT 138 10x3/uL (130-400); RBC 4.26 10x6/uL (4.20-6.10); WBC 7.3 10x3/uL (4.8-10.8)
[2018-10-07 05:56] LABS: ALKALINE PHOSPHATASE 90 U/L (46-116); ALT (SGPT) 74 U/L (10-68); BILIRUBIN - TOTAL 0.84 mg/dL (0.2-1.3); CALC OSMOLALITY 276 mosm/kg (275-300); CALCIUM 9.3 mg/dL (8.5-10.1); CARBON DIOXIDE 21.7 mmol/L (21.0-32.0); CHLORIDE - SERUM 103 mmol/L (98-107); CREATININE - SERUM 0.8 mg/dL (0.6-1.3); GLUCOSE 118 mg/dL (74-106); POTASSIUM - SERUM 3.6 mmol/L (3.5-5.1); PROTEIN - SERUM 7.4 g/dL (6.4-8.2); SODIUM 138 mmol/L (136-145); UREA NITROGEN 13 mg/dL (7-18); eGFR NON AFRICAN AMERICAN > 90 mL/min (90-120)
[2018-10-07 06:26] VITALS: BP 119/70
--- NOTE | 2018-10-07 07:47 | NUR ---
AWAKE AND ALERT. RESPONDS TO VERBAL STIMULATION. NON VERBAL SO DIFFICULT TO ASSESS ORIENTATION. LUNGS ARE CLEAR BILATERALLY, NO COUGH NOTED. SKIN IS INTACT WITHOUT REDNESS. IV TO LEFT WRIST AREA PATETN WTIHOUT REDNESS AT INSERTION SITE. NO NEEDS NOTED.
[2018-10-07] MEDS ORDERED: CHRONULAC30 ML PO (08:12)
[2018-10-07] MEDS ORDERED: VITAMIN B-1250 MG PO (08:12)
[2018-10-07 09:30] VITALS: BP 119/71
--- NOTE | 2018-10-07 10:00 | NUR ---
TOOK AM MEDS WITHOUT DIFFICUTLY. FED PER STAFF. ATE MOST OF BREAKFAST.
[2018-10-07 12:49] VITALS: BP 113/74
--- NOTE | 2018-10-07 13:10 | NUR ---
TAVIA EXPLAINED TO PATIENT, I AM UNABLE TO ASSESS IF HE UNDERSTOOD OR NOT. I CALLED THE [facility] AND SPOKE WITH HIS NURSE YULIANA AT [facility], HE STATED THAT HIS BROTHER VANESSA IS THE ONE WHO HELPS HIM HERE, BUT HE COULD NOT GET A NUMBER FOR ME AND HE KNOW S THAT THERE IS A SISTER WHO LIVES IN [place] BUT AGAIN THERE IS NO NUMBER TO BE GIVEN TO ME. 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 HE IS NONVERBAL AT TIMES AND OTHERS HE CAN MAKE A COMPLETE SENTENCE. this was done on 10/06/18 @ 6086
--- NOTE | 2018-10-07 13:18 | MORECARE ---
CASE MANAGEMENT DISCHARGE SUMMARY PATIENT: LUZ ALEJANDRO UNIT: [id number] ADM DATE: 10/05/18 AGE: 58 : 58 SEX: M ROOM/BED: D.2208 AUTHOR: COTY,DOC PHYSICIAN: REFERRING PHYSICIAN: MERE SNOW MD DATE OF SERVICE: 10/07/18 Discharge Plan Patient Name: LUZ ALEJANDRO Facility: [facility]:[place] : 1960 Planned Disposition: Nursing Home Facility Anticipated Discharge Date: Discharge Date: Expected LOS: Initial Reviewer: [email or web address] Initial Review Date: 10/05/2018 Generated: 10/07/18 2:18 pm Comments DCP- Discharge Planning Updated by [email or web address]: Hanny Diaz on 10/07/18 12:[address] Spoke with [facility] ([facility]) they are waiting on Auth for him to go back. He is a skilled patient who will transition to a intermediate card tender bed. I will wait for auth DCP- Discharge Planning Updated by [email or web address]: Hanny Diaz on 10/06/18 3:[address] SQUIRES EXPLAINED TO PATIENT, I AM UNABLE TO ASSESS IF HE UNDERSTOOD OR NOT. I CALLED THE [facility] AND SPOKE WITH HIS NURSE YULIANA AT THE [facility], HE STATED THAT HIS BROTHER VANESSA IS THE ONE WHO HELPS HIM HERE, BUT HE COULD NOT GET A NUMBER FOR ME AND HE KNOW S THAT THERE IS A SISTER WHO LIVES IN [place] BUT AGAIN THERE IS NO NUMBER TO BE GIVEN TO ME. 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. HE IS NONVERBAL AT TIMES AND OTHERS HE CAN MAKE A COMPLETE SENTENCE. External Providers External Provider: [facility] [place] Next Contact Date: Service Request Date: Service Type: Resolution: Reviewer: Comments: Coverage Notice Reviewer: [email or web address] - Hanny Diaz Notice Issued Date-Time: 10/06/2018 15:00 Notice Type: Medicare Outpatient Observation Notice Notice Delivered To: Patient Relationship to Patient: Regional Commercial Sales Manager Name: Delivery Method: HAND - Hand Delivered Maddy Days: Prior Verbal Notification: Recipient Understood Notice: Recipient Signature: Med Rec Note Co-signed by Attending: Coverage Notice Comment: VERBALLY EXPLAINED, PT UNABLE TO SIGN Patient Name: LUZ ALEJANDRO Page [phone] at 1318 All edits/amendments must be made on the electronic document DICTATION DATE: 10/07/181317 DATA CONVERSION ANALYST: LORENE 10/07/181317 RPT#: [id number] DC DATE: STATUS: ADM IN [facility] [address] [place] [address] END OF REPORT
--- NOTE | 2018-10-07 14:30 | MORECARE ---
CASE MANAGEMENT DISCHARGE SUMMARY PATIENT: LUZ ALEJANDRO UNIT: [id number] ADM DATE: 10/05/18 AGE: 58 : 58 SEX: M ROOM/BED: D.2208 AUTHOR: COTY,DOC PHYSICIAN: REFERRING PHYSICIAN: MERE SNOW MD DATE OF SERVICE: 10/07/18 Discharge Plan Patient Name: LUZ ALEJANDRO Facility: [facility]:[place] : 1960 Planned Disposition: Retirement Facility Anticipated Discharge Date: Discharge Date: Expected LOS: Initial Reviewer: [email or web address] Initial Review Date: 10/05/2018 Generated: 10/07/18 3:29 pm Comments DCP- Discharge Planning Updated by [email or web address]: Hanny Diaz on 10/07/18 1:[address] PATIENT'S BROTHER CAME TO HOSPITAL TO SEE HIM AND STATED THAT HE IS WORKING ON GETTING ALL THE INFORMATION THAT THE [facility] NEEDS TO HAVE HIS BROTHER THERE INTERMEDIATE , HE STATED THAT THIS IS HIS PRIOR LEVEL OF FUNCTION SINCE HIS LAST STROKE. YOSVANY ALEJANDRO (BROTHER) [phone] I EXPLAINED TO HIM THAT WE WERE WAITING ON AUTH TO SEND HIM BACK TO THE [facility] DCP- Discharge Planning Updated by [email or web address]: Hanny Diaz on 10/07/18 12:[address] Spoke with [facility] ([facility]) they are waiting on Auth for him to go back. He is a skilled patient who will transition to a fpc bed. I will wait for auth DCP- Discharge Planning Updated by [email or web address]: Hanny Diaz on 10/06/18 3:[address] SQUIRES EXPLAINED TO PATIENT, I AM UNABLE TO ASSESS IF HE UNDERSTOOD OR NOT. I CALLED THE [facility] AND SPOKE WITH HIS NURSE YULIANA AT THE [facility], HE STATED THAT HIS BROTHER VANESSA IS THE ONE WHO HELPS HIM HERE, BUT HE COULD NOT GET A NUMBER FOR ME AND HE KNOW S THAT THERE IS A SISTER WHO LIVES IN [place] BUT AGAIN THERE IS NO NUMBER TO BE GIVEN TO ME. 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. HE IS NONVERBAL AT TIMES AND OTHERS HE CAN MAKE A COMPLETE SENTENCE. Coverage Notice Reviewer: [email or web address] Diaz Notice Issued Date-Time: 10/06/2018 15:00 Notice Type: Medicare Outpatient Observation Notice Notice Delivered To: Patient Relationship to Patient: Senior Logistics Manager Name: Delivery Method: HAND - Hand Delivered Maddy Days: Prior Verbal Notification: Recipient Understood Notice: Recipient Signature: Med Rec Note Co-signed by Attending: Coverage Notice Comment: VERBALLY EXPLAINED, PT UNABLE TO SIGN Last DP export: 10/07/18 12:18 p Patient Name: LUZ ALEJANDRO Page [phone] at 1430 All edits/amendments must be made on the electronic document DICTATION DATE: 10/07/181428 RESEARCH MANAGEMENT ASSOCIATE: LORENE 10/07/18 142 RPT#: [id number] DC DATE: STATUS: ADM IN [facility] [address] [place] [address] END OF REPORT
--- NOTE | 2018-10-07 17:00 | NUR ---
INCONTINENT OF URINE. SKIN CARE PER STAFF. SL TO LEFT HAND D/C WITH CATHETER INTACT.
--- NOTE | 2018-10-07 17:01 | MORECARE ---
CASE MANAGEMENT DISCHARGE SUMMARY PATIENT: LUZ ALEJANDRO UNIT: [id number] ADM DATE: 10/05/18 AGE: 58 : 58 SEX: M ROOM/BED: D.2208 AUTHOR: COTY,DOC PHYSICIAN: REFERRING PHYSICIAN: MERE SNOW MD DATE OF SERVICE: 10/07/18 Discharge Plan Patient Name: LUZ ALEJANDRO Facility: [facility]:[place] : 1960 Planned Disposition: Assisted Facility Anticipated Discharge Date: 10/07/18 Discharge Date: Expected LOS: 2 Initial Reviewer: [email or web address] Initial Review Date: 10/05/2018 Generated: 10/07/18 6:01 pm Comments DCP- Discharge Planning Updated by [email or web address]: Sepideh Floyd on 10/07/18 4:[address] 1627 CM RECEIVED TELEPHONE CALL FROM [facility]. AUTH RECEIVED. PATIENT WILL BE DISCHARGED BACK TO [facility] VIA AMBULANCE. PSC FORM COMPLETED. DCP- Discharge Planning Updated by [id number]: Hanny Diaz on 10/07/18 1:[address] PATIENT'S BROTHER CAME TO HOSPITAL TO SEE HIM AND STATED THAT HE IS WORKING ON GETTING ALL THE INFORMATION THAT [facility] NEEDS TO HAVE HIS BROTHER THERE PRISON , HE STATED THAT THIS IS HIS PRIOR LEVEL OF FUNCTION SINCE HIS LAST STROKE. YOSVANY ALEJANDRO (BROTHER) [phone] I EXPLAINED TO HIM THAT WE WERE WAITING ON AUTH TO SEND HIM BACK TO [facility] DCP- Discharge Planning Updated by [id number]: Hanny Diaz on 10/07/18 12:[address] Spoke with [facility] ([facility]) they are waiting on Auth for him to go back. He is a skilled patient who will transition to a residential bed. I will wait for auth DCP- Discharge Planning Updated by [email or web address]: Hanny Diaz on 10/06/18 3:[address] TAVIA EXPLAINED TO PATIENT, I AM UNABLE TO ASSESS IF HE UNDERSTOOD OR NOT. I CALLED [facility] AND SPOKE WITH HIS NURSE CRISTAL [facility], HE STATED THAT HIS BROTHER VANESSA IS THE ONE WHO HELPS HIM HERE, BUT HE COULD NOT GET A NUMBER FOR ME AND HE KNOW S THAT THERE IS A SISTER WHO LIVES IN [place] BUT AGAIN THERE IS NO NUMBER TO BE GIVEN TO ME. 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 HE IS NONVERBAL AT TIMES AND OTHERS HE CAN MAKE A COMPLETE SENTENCE. Coverage Notice Reviewer: [id number] - Hanny Diaz Notice Issued Date-Time: 10/06/2018 15:00 Notice Type: Medicare Outpatient Observation Notice Notice Delivered To: Patient Relationship to Patient: Dog Behaviorist Name: Delivery Method: HAND - Hand Delivered Maddy Days: Prior Verbal Notification: Recipient Understood Notice: Recipient Signature: Med Rec Note Co-signed by Attending: Coverage Notice Comment: VERBALLY EXPLAINED, PT UNABLE TO SIGN Last DP export: 10/07/18 1:30 p Patient Name: LUZ ALEJANDRO Page [id number] at 1701 All edits/amendments must be made on the electronic document DICTATION DATE: 10/07/181699 EMBRYOLOGY TEACHER: LORENE 10/07/181699 RPT#: [id number] DC DATE: STATUS: ADM IN [facility] [address] [place] [address] END OF REPORT
--- NOTE | 2018-10-07 17:10 | NUR ---
REPORT CALLED TO CRISTAL SOTELO LPN AT THE [facility]. ALL QUESTIONS ANSWERED. [facility] CALLED FOR TRANSPORT.
--- NOTE | 2018-10-07 18:51 | NUR ---
ATE ALL OF SUPPER WITH STAFF ASSISTANCE. NO NEEDS NOTED.
--- NOTE | 2018-10-07 19:30 | NUR ---
PT DISCHARGED TO [facility] VIA [facility]. TRANSFERED TO [facility] WITHOUT DIFFICULTY. DC PAPERWORK HANDED TO [facility]. LEFT UNIT AT THIS TIME
== END 2018-10-07 19:30 ==
LOC: D.ER 09:33 → D.MS 13:38 → OBSVTIME 13:38 → D.MS 10-07 19:30
PROVIDERS: Family Medicine; ADMIT Emergency Medicine; ATTEND Emergency Medicine
DX: K72.90 Hepatic failure, unspecified without coma (principal); F10.10 Alcohol abuse, uncomplicated; K74.60 Unspecified cirrhosis of liver; D69.6 Thrombocytopenia, unspecified; D64.9 Anemia, unspecified